=== PATIENT | female | born 1955 | race Caucasian/White ===

== ENCOUNTER 2021-03-12 08:45 | Outpatient (REF) | payer OTHER, SELFPAY ==
[2021-03-12 09:42] LABS: MANUAL DIFF FLAG NO
[2021-03-12 09:47] LABS: Basophils Absolute Auto 0.1 X10*3/uL (0.0-0.2); Basophils Percent Auto 1.9 % (0-2); Eosinophils Absolute Auto 0.1 X10*3/uL (0.0-0.4); Eosinophils Percent Auto 1.2 % (0-4); Hematocrit 38.2 % (37-47); Hemoglobin 12.5 g/dl (12.0-16.0); Imm Gran Abs Auto 0.01 X10*3/uL (0.00-0.03); Imm Gran Pct Auto 0.2 % (0.0-0.4); Lymphocytes Absolute Auto 1.6 X10*3/uL (1.2-4.9); Lymphocytes Percent Auto 38.1 % (20-40); Mean Corpuscular HGB Conc 32.7 g/dl (31.0-35.0); Mean Corpuscular Hemoglobin 27.4 pg (27.0-33.0); Mean Corpuscular Volume 83.8 fL (80-98); Mean Platelet Volume 9.9 fL (9.4-12.3); Monocytes Absolute Auto 0.5 X10*3/uL (0.1-1.2); Monocytes Percent Auto 12.4 % (2-11); Neutrophils Absolute Auto 1.9 X10*3/uL (2.0-8.3); Neutrophils Percent Auto 46.2 % (45-73); Platelet Count 267 X10*3/uL (160-400); Red Blood Count 4.56 X10*6/uL (4.20-5.50); Red Cell Distribution Width 13.1 % (11.0-16.0); White Blood Count 4.2 X10*3/uL (4.8-10.8)
[2021-03-12 10:35] LABS: Alanine Aminotransferase 16 U/L (0-31); Albumin Level 4.2 g/dL (3.5-5.0); Alkaline Phosphatase 52 U/L (39-117); Anion Gap 14 (12-20); Aspartate Amino Transferase 23 U/L (5-31); Bilirubin Total 0.5 mg/dL (0.0-1.0); Blood Urea Nitrogen 10 mg/dL (9-16); Calcium 9.6 mg/dL (8.4-10.2); Carbon Dioxide 28 mmol/L (22-29); Chloride 101 mmol/L (96-108); Estimated Glomerular Filt Rate > 60; Glucose Fasting 87 mg/dL (60-99); Potassium 4.6 mmol/L (3.3-5.1); Sodium 138 mmol/L (135-145); Total Protein 7.7 g/dL (6.5-8.0)
[2021-03-12 10:57] LABS: TSH reflex Free T4 1.08 uIU/mL (0.32-4.0)
[2021-03-12 11:15] LABS: Erythrocyte Sedimentation Rate 28 MM/HR (0-20)
[2021-03-14 14:07] LABS: CRP High Sensitivity 3.3 mg/L
== END 2021-03-12 08:46 | disposition home or self-care (01) ==
LOC: HO.LAB 08:45
PROVIDERS: Visit Provider Family Medicine
DX: Z00.00 Encounter for general adult medical examination without abnormal findings (principal); R00.0 Tachycardia, unspecified
CPT/HCPCS: 36415; 80053; 84443; 85025; 85652; 86141

== ENCOUNTER 2021-08-05 07:20 | Outpatient (REF) | payer OTHER, SELFPAY ==
--- NOTE | ~2021-08-05 | CT_ITS ---
EXAMINATION: CT HEAD WITHOUT CONTRAST CLINICAL INFORMATION: Headache COMPARISON: MRI brain from 01/15/2018 TECHNIQUE: Contiguous axial imaging was performed from the skull base to vertex without intravenous administration of contrast. This CT examination was performed using dose optimization techniques as appropriate, variously including the following: *Automated exposure control *Adjustment of mA and/or kV according to patient size (this includes techniques or standardized protocols for targeted exams where dose is matched to indication/reason for exam; i.e. extremities or head) *Use of iterative reconstruction technique DLP: 685.1 mGy-cm FINDINGS: There is no evidence of acute intracranial hemorrhage or territorial infarction. No abnormal mass effect or midline shift is seen. Remy to white matter differentiation is well preserved. No extra-axial fluid collections are identified. The ventricles are normal in size. There is no abnormal attenuation within the brain parenchyma. The osseous structures and soft tissues are normal. The mastoid air cells and visualized portions of the paranasal sinuses are well aerated. CT/CT head/brain wo con IMPRESSION: No acute intracranial pathology.
== END 2021-08-05 07:21 | disposition home or self-care (01) ==
LOC: HO.CT 07:20
PROVIDERS: PCP Family Medicine; Visit Provider Family Medicine
DX: R51.9 Headache, unspecified (principal)
CPT/HCPCS: 70450

== ENCOUNTER 2021-09-14 10:51 | Outpatient (REF) | payer OTHER, SELFPAY ==
--- NOTE | ~2021-09-14 | XR_ITS ---
EXAMINATION: XR CHEST CLINICAL INFORMATION: Tachycardia COMPARISON: Chest x-ray on 01/22/2020 TECHNIQUE: 2 views of the chest were obtained. FINDINGS: No significant abnormality is noted involving the heart, lungs, mediastinum, bony thorax or soft tissues. XR/XR chest 2V IMPRESSION: Unremarkable examination.
[2021-09-14 13:57] LABS: MANUAL DIFF FLAG NO
[2021-09-14 14:20] LABS: Basophils Absolute Auto 0.1 X10*3/uL (0.0-0.2); Basophils Percent Auto 1.2 % (0-2); Eosinophils Percent Auto 0.4 % (0-4); Hemoglobin 12.3 g/dl (12.0-16.0); Imm Gran Abs Auto 0.02 X10*3/uL (0.00-0.03); Imm Gran Pct Auto 0.3 % (0.0-0.4); Lymphocytes Absolute Auto 2.3 X10*3/uL (1.2-4.9); Lymphocytes Percent Auto 33.7 % (20-40); Mean Corpuscular HGB Conc 32.4 g/dl (31.0-35.0); Mean Corpuscular Volume 86.6 fL (80-98); Mean Platelet Volume 10.1 fL (9.4-12.3); Monocytes Absolute Auto 0.6 X10*3/uL (0.1-1.2); Monocytes Percent Auto 9.4 % (2-11); Neutrophils Absolute Auto 3.7 X10*3/uL (2.0-8.3); Platelet Count 408 X10*3/uL (160-400); Red Blood Count 4.39 X10*6/uL (4.20-5.50); White Blood Count 6.8 X10*3/uL (4.8-10.8)
[2021-09-14 14:34] LABS: Troponin-I High Sensitivity < 3.5 ng/L (<3.5-17.0)
[2021-09-14 14:40] LABS: Alanine Aminotransferase 11 U/L (0-31); Albumin Level 4.5 g/dL (3.5-5.0); Alkaline Phosphatase 61 U/L (39-117); Anion Gap 15 (12-20); Aspartate Amino Transferase 19 U/L (5-31); Bilirubin Total 0.5 mg/dL (0.0-1.0); Blood Urea Nitrogen 8 mg/dL (9-16); Calcium 9.5 mg/dL (8.4-10.2); Carbon Dioxide 25 mmol/L (22-29); Chloride 100 mmol/L (96-108); Estimated Glomerular Filt Rate > 60; Glucose Fasting 97 mg/dL (60-99); Potassium 4.3 mmol/L (3.3-5.1); Sodium 136 mmol/L (135-145); Total Protein 8.5 g/dL (6.5-8.0)
[2021-09-14 14:46] LABS: TSH reflex Free T4 1.15 uIU/mL (0.32-4.0)
== END 2021-09-14 10:52 | disposition home or self-care (01) ==
LOC: HO.WFDLDS 10:51
PROVIDERS: PCP Family Medicine; Visit Provider Family Medicine
DX: Z00.00 Encounter for general adult medical examination without abnormal findings (principal); R00.0 Tachycardia, unspecified; R06.02 Shortness of breath
CPT/HCPCS: 36415; 71046; 80053; 84443; 84484; 85025

== ENCOUNTER 2021-10-20 11:49 | Emergency (ER) | payer OTHER, SELFPAY ==
[2021-10-20 12:07] VITALS: BP 144/90; PULSE 83; O2SAT 100; BMI 21.2
[2021-10-20 12:14] VITALS: BP 145/76; PULSE 78; RESP 18; TEMP 36.7; O2SAT 99
--- NOTE | 2021-10-20 12:28 | ECG_ITS ---
Test Reason : ANXIETY Blood Pressure : / mmHG Vent. Rate : 076 BPM Atrial Rate : 076 BPM P-R Int : 138 ms QRS Dur : 084 ms QT Int : 382 ms P-R-T Axes : 062 095 069 degrees QTc Int : 429 ms Normal sinus rhythm Rightward axis Borderline ECG When compared with ECG of 17-JAN-2018 05:21, No significant change was found Referred By: Marilyn Cash Electronically Signed By:KATHLEEN GARDINER
--- NOTE | 2021-10-20 12:32 | ED.ANXIETY ---
HPI - Anxiety General Chief Complaint: Anxiety Stated Complaint: ANXIETY ATTACK W/SOB,L ARM NUMNBESS,S/P COVID TEST Time Seen by Provider: 10/20/21 12:28 History of Present Illness HPI narrative: Patient is a 65-year-old female with a history of anxiety. Presented today after waiting for COVID test for approximately 3 hours. Patient feel very tingling in both arms and legs. Has feeling of doom. This is exactly same as her previous panic attack. Patient denies any chest pain. No diaphoresis. Positive history of rheumatoid arthritis. Patient already received her COVID vaccine x2. Patient is on Humira. Denies any focal weakness patient's symptom has since resolved. She is in no distress. Related Data Home Medications Medication Instructions Recorded Confirmed aspirin 81 mg tablet,delayed 81 mg PO DAILY 08/15/21 release (Adult Aspirin Regimen) Previous Rx's Medication Instructions Recorded sertraline 50 mg tablet 50 mg PO DAILY 90 Days #90 tab 09/21/20 simvastatin 40 mg tablet 40 mg PO DAILY 90 Days #90 tab 05/19/21 cetirizine 10 mg tablet (All Day 10 mg PO DAILY 90 Days #90 tab 07/05/21 Allergy (cetirizine)) albuterol sulfate 90 mcg/actuation 2 puff INHALATION Q6H PRN 30 Days 08/15/21 aerosol inhaler (ProAir HFA) #8.5 g fluticasone propionate 110 1 puff INHALATION Q12H 30 Days #12 08/15/21 mcg/actuation HFA aerosol inhaler g (Flovent HFA) topiramate 50 mg tablet 50 mg PO BID 30 Days #60 tab 08/24/21 clonazepam 0.5 mg tablet 0.25 mg PO BID PRN 30 Days #12 tab 10/04/21 fluticasone propionate 50 2 spray INTRANASAL DAILY #16 g 10/06/21 mcg/actuation nasal spray,suspension Allergies Allergy/AdvReac Type Severity Reaction Status Date / Time penicillin V Allergy Unknown hives Verified 10/04/21 15:57 Review of Systems Review of Systems: No fever no chills no cough no congestion or upper respiratory symptoms no diaphoresis All system reviewed otherwise negative PMFSH Past Medical History Attestation statement: The following information was validated with the patient. Medical History Close exposure to 2019 novel coronavirus Flushing Itch Tachycardia Surgical History History of appendectomy History of shoulder surgery Social History Social History Housing: House Alcohol intake: current Alcohol intake frequency: holidays/special occasions only Patient Tobacco Use Status: Former Tobacco user Advance Directives: No Advance Directives Information Provided: No Patient : No service: No Current occupational status: employed Physical Exam Vital Signs: Vital Signs: Last Vital Signs Temp 98.0 F 10/20/21 12:14 Pulse 78 10/20/21 12:14 Resp 18 10/20/21 12:14 BP 145/76 H 10/20/21 12:14 Pulse Ox 99 10/20/21 12:14 BMI result Body Mass Index 21.2 Appearance: Alert. Oriented X3. No acute distress. Eyes: Pupils equal, round and reactive to light. ENT: Pharynx normal. Neck: Normal inspection. Neck supple. No lymph nodes noted. No crepitus CVS: Normal heart rate and rhythm. Pulses normal. Normal S1 and S2 Respiratory: No respiratory distress. Breath sounds normal. No Wheezing. No rales Abdomen: Soft and nontender. No rigidity. No distention. good BS x4 Skin: Skin warm and dry. Normal skin color. Normal skin turgor. Extremities: No lower extremity edema. Neurovascular intact to all extremities. No Lacerations. No Rash Neuro: Oriented X 3. No motor deficit. No sensory deficit. Moving all extermities. No slurred speech MDM - Anxiety MDM Narrative Medical decision making narrative: Patient's COVID test was negative. Given Ativan symptom improved. No distress. EKG showed a sinus pattern heart rate was 75 ID QRS QT within normal limits there is no acute ST segment elevation. Will discharge patient home. Medical Records Attestation: I reviewed the patient's medical records. Lab Data Attestation: I reviewed the patient's lab results. Labs: Lab Results 10/20/21 Range/Units 12:37 COVID-19 (JORGE) Negative (Negative) COVID-19 Clin Com See Note Discharge Plan Discharge Clinical Impression: Anxiety Patient Disposition: Home, Self-Care Instructions: Anxiety (ED) Prescriptions: No Action sertraline 50 mg tablet 50 mg PO DAILY 90 Days Qty: 90 RF: 4 simvastatin 40 mg tablet 40 mg PO DAILY 90 Days Qty: 90 RF: 2 topiramate 50 mg tablet 50 mg PO BID 30 Days Qty: 60 RF: 1 fluticasone propionate 50 mcg/actuation spray,suspension 2 spray intranasal DAILY Qty: 16 RF: 3 clonazepam 0.5 mg tablet 0.25 mg PO BID PRN (Reason: anxiety) 30 Days Qty: 12 RF: 0 cetirizine [All Day Allergy (cetirizine)] 10 mg tablet 10 mg PO DAILY 90 Days Qty: 90 RF: 3 aspirin [Adult Aspirin Regimen] 81 mg tablet,delayed release (DR/EC) 81 mg PO DAILY RF: 0 albuterol sulfate [ProAir HFA] 90 mcg/actuation HFA aerosol inhaler 2 puff inhalation Q6H PRN (Reason: shortness of breath or wheezing) 30 Days Qty: 8.5 RF: 3 Flovent HFA 110 mcg/actuation HFA aerosol inhaler 1 puff inhalation Q12H 30 Days Qty: 12 RF: 2 Referrals: Aguilar De Luna MD [Primary Care Provider] - 2 days
[2021-10-20] MEDS: LORazepam 0.5 MG TABLET PO (12:50)
[2021-10-20 12:55] LABS: COVID-19 Test Negative (Negative)
== END 2021-10-20 13:25 | disposition home or self-care (01) ==
PROVIDERS: Emergency Provider Emergency Medicine Emergency Medical Services; PCP Family Medicine
DX: F41.9 Anxiety disorder, unspecified (principal); Z20.822 Contact with and (suspected) exposure to COVID-19; R06.02 Shortness of breath
CPT/HCPCS: 36415; 87635; 93005; 99283; 99284

== ENCOUNTER 2022-07-25 11:44 | Outpatient (REF) | payer OTHER, SELFPAY ==
[2022-07-25 14:14] LABS: Appearance Urine Clear; Color Urine Yellow; Glucose Urine UA Negative (Negative); Leukocyte Esterase Urine Negative (Negative); Nitrite Urine Negative (Negative); Urine Blood Trace (Negative); Urine Ketones Negative (Negative); Urine Protein Negative (Neg-Trace)
[2022-07-25 14:19] LABS: Bacteria Urine None Seen (None Seen); Hyaline Casts Urine 0-2 /LPF (0-2); RBC Urine 0-2 /HPF (0-2); Squamous Epithelial Cell Urine 0-2 /HPF (0-2); WBC Urine 0-5 /HPF (0-5)
[2022-07-25 14:49] LABS: Alanine Aminotransferase 19 U/L (0-31); Albumin Level 4.3 g/dL (3.5-5.0); Alkaline Phosphatase 58 U/L (39-117); Anion Gap 15 (12-20); Aspartate Amino Transferase 27 U/L (5-31); Bilirubin Total 0.4 mg/dL (0.0-1.0); Blood Urea Nitrogen 14 mg/dL (9-16); Calcium 9.2 mg/dL (8.4-10.2); Carbon Dioxide 26 mmol/L (22-29); Chloride 103 mmol/L (96-108); Cholesterol 198 mg/dL; Estimated Glomerular Filt Rate 55; Glucose Fasting 90 mg/dL (60-99); HDL Cholesterol 48 mg/dL; LDL Cholesterol Calculated 116 mg/dl; Sodium 139 mmol/L (135-145); Triglycerides 170 mg/dL
[2022-07-25 14:54] LABS: TSH reflex Free T4 2.34 uIU/mL (0.32-4.0)
[2022-07-25 15:17] LABS: Creatinine Urine 50.82 mg/dL; Microalbumin Urine < 5.0 mg/L
== END 2022-07-25 11:45 | disposition home or self-care (01) ==
LOC: HO.WFDLDS 11:44
PROVIDERS: Visit Provider Family Medicine
DX: Z00.00 Encounter for general adult medical examination without abnormal findings (principal); I10 Essential (primary) hypertension
CPT/HCPCS: 36415; 80053; 80061; 81001; 81003; 82043; 84443

== ENCOUNTER 2022-10-09 11:24 | Outpatient (REF) | payer OTHER, SELFPAY ==
[2022-10-09 13:12] LABS: Vitamin B12 404 pg/mL (200-900)
== END 2022-10-09 11:25 | disposition home or self-care (01) ==
LOC: HO.LAB 11:24
PROVIDERS: PCP Family Medicine; Visit Provider Psychiatry & Neurology Neurology
DX: G31.84 Mild cognitive impairment of uncertain or unknown etiology (principal)
CPT/HCPCS: 36415; 82607

== ENCOUNTER 2023-06-06 14:46 | Outpatient (AMB) | payer OTHER, SELFPAY ==
[2023-06-06 15:00] VITALS: BP 114/76; PULSE 93; RESP 12; TEMP 36.4; O2SAT 98; BMI 23.0
--- NOTE | 2023-06-06 15:00 | MHC.PC.OV ---
Vital Signs 06/06/23 15:00 Height 5 ft 8 in Weight 151 lb 4 oz BMI 23.0 BP 114/76 Blood Pressure Location Rt brachial Position Sitting Respiration 12 Pulse 93 Pulse Source Pulse Oximeter Temp 97.6 F Temp Source Temporal Artery Scan Pulse Oximetry (%) 98 Oxygen Delivery Method Room Air Intake Visit Reasons: [place]/ -13/06-03/Reports of a fall Intake Note: Patient is concerned about next steps for her injury. Patient states that when at the hospital they stated she needed a CAT scan. Patient states that the hospital confirmed she broke her right leg. Patient states that one of her medications is causing her to see shadows at night and seeing things during the day. Template Layout Worker Required: No Accompanied by: Self / Same As Patient Allergies penicillin V Allergy (Unknown, Verified 06/06/23 15:36) hives Medication List - Last Reconciled 06/06/23 by Alicia Singh, TRINO albuterol sulfate 90 mcg/actuation 2 puffs PO Q6H PRN aspirin (Adult Aspirin Regimen) 81 mg PO DAILY bupropion HCl 37.5 mg (1/2 x 75 mg) PO DAILY cetirizine (All Day Allergy (cetirizine)) 10 mg PO DAILY 90 days clotrimazole-betamethasone 1-0.05 % 1 appl topical BID 2 weeks fluticasone propionate 110 mcg/actuation (Flovent HFA) 1 puff inhalation Q12H 30 days sertraline 100 mg PO DAILY 90 days simvastatin 40 mg PO DAILY 90 days Tobacco use date assessed: 09/06/22 Fall risk assessment: 1 Fall in past year Last assessed Fall Risk: 06/06/23 Dental Screening Dental Screen Date: 06/06/23 Did you have a dental visit in the last 12 months?: Yes Did you have a dental problem in the last 6 months where you did not have access to dental care?: No Was dental information given to patient?: Patient has dentist HPI HPI Comments History of Present Illness Details There 67-year-old female presents for recent hospitalization follow-up visit She was admitted at [facility] between 06/01/2023 and 06/03/2023 for right ankle pain s/p fall in her home. X-ray revealed nondisplaced oblique fracture of the right proximal fibula; normal right ankle. She was discharged home with instructions to wear knee immobilizer and weight-bearing as tolerable. CT of the right knee was recommended. She also has current home care orders. She notes that fell from 2 sets of stairs and fell in a hallway in her home. No head, neck, or back injury. No LOC. PT was set by [facility], awaiting CT results. She reports minimal pain to her right lower leg and foot only while walking, no pain at rest. She currently lives with her sister who helps with the patient's care. She states that she does not need VNA services. She reports experiencing moving of the ceilings and seeing black spots, at night, for the past 2 months. She attributes her symptoms to her side effects of her bedtime medications. [facility] Medical History Broken leg Close exposure to 2019 novel coronavirus Flushing Itch Tachycardia Surgical History History of appendectomy History of shoulder surgery Social History Housing: House Alcohol intake: current Alcohol intake frequency: holidays/special occasions only Patient Tobacco Use Status: Former Tobacco user e-Cigarette/Vaping Use: Never Used Second Hand Smoke Exposure: No service: No Current occupational status: employed and retired Current occupational exposures/hazards: No Cognitive needs: No Hearing needs: No Vision needs: Yes (Glasses) Questionnaire Thrive Questionnaire Date Thrive assessed: 06/06/23 I am a: Patient What is your living situation today?: I have a steady place to live Within the past 12 months, did the food you bought not last and you didn't have the money to get more?: Never true Within the past 12 months, did you worry whether your food would run out before you got money to buy more?: Never true Do you have trouble paying for medicines?: No Do you have trouble getting transportation to medical appointments?: No Do you have trouble paying your heating and electricity bill?: No Do you have trouble taking care of your child, family member or friend?: No Do you have trouble with day-to-day activities such as bathing, preparing meals, shopping, managing finances, etc.?: No Are you currently unemployed and looking for a job?: No Are you interested in more education?: No Please select the resources that you would like help with: None Currently or been in a relationship where the following occur: no concerns reported ARNOLDO-7 AMB Questionnaire ARNOLDO-7 Date ARNOLDO - 7 assessed: 09/06/22 Source: Developed by Drs. Kamran Salas, Brooklyn Arias, Darrion Ayon and colleagues, with an educational mariusz from [employer]. Review of Systems Const Details: Const Denies chills, Denies fatigue, Denies fever(s), Denies headache(s) and Denies weakness ENT Denies dizziness and Denies headache(s) Card Denies chest pain, Denies lightheadedness, Denies dyspnea and Denies other (Palpitations) Resp Denies cough, Denies dyspnea, Denies wheezing and Denies other ( shortness of breath) GI Denies abdominal pain, Denies melena, Denies hematochezia, Denies change in bowel habits, Denies dyspepsia and Denies nausea Denies hematuria and Denies dysuria Musc Reports right foot and lower leg pain, Denies abnormal gait, Denies myalgias, Denies arthralgias, Denies numbness and Denies tingling Skin/Breast Denies rash, Denies unusual bruising and Denies wounds Neuro Reports abnormal gait, Denies dizziness, Denies headache(s), Denies memory loss, Denies numbness, Denies Sensory deficit (Neuro), Denies tingling and Denies weakness Psych Denies anxiety and Denies depression Endo Denies fatigue Aller/Immun Denies wheezing Physical exam (Primary Care) Vital Signs: Last Vital Signs Temp 97.6 F 06/06/23 15:00 Pulse 93 06/06/23 15:00 Resp 12 06/06/23 15:00 BP 114/76 06/06/23 15:00 Pulse Ox 98 06/06/23 15:00 Oxygen Delivery Method Room Air 06/06/23 15:00 BMI result Body Mass Index 23.0 Tobacco/Smoking Status: Tobacco use Status Tobacco use date assessed 09/06/22 06/06/23 15:21 Patient Tobacco Use Status Former Tobacco user 06/06/23 15:21 e-Cigarette/Vaping Use Never Used 06/06/23 15:21 Thrive Assessment: Date of Thrive Assessment Date Thrive assessed 06/06/23 06/06/23 15:23 Currently or been in a relationship where the following occur: no concerns reported Const Other: General: no acute distress and well developed Nutritional Appearance: well nourished Orientation/consciousness: patient oriented x3 [facility] Head: Yes normocephalic and Yes atraumatic Eyes General: appearance normal, both eyes and all related structures Pupils: Equal, round and reactive pupils present EOM: EOMs intact bilaterally Resp Effort & Inspection: normal respiratory effort Auscultation: clear to auscultation bilaterally Cardio Rate: regular rate Rhythm: regular rhythm Heart sounds: S1 normal heart sound present, S2 normal heart sound present, no gallops, no murmurs and no rubs GI Palpation (GI): No Abdominal aortic bruit present, Soft to palpation, nontender, No hepatosplenomegaly present and No Rebound tenderness present Auscultation: normal bowel sounds General: Yes no CVA tenderness Back/Spine/Pelvis Back: no CVA tenderness Cervical Spine: cervical ROM normal and No Cervical spine tenderness Thoracic/Lumbar Spine: thoraco-lumbar ROM normal, No pain with thoraco-lumbar ROM, No thoracic spinal tenderness and No lumbar spinal tenderness Extrem General: Yes normal to inspection, No edema and No calf tenderness Positive DP/PT pulses Skin General: warm and dry. Normal skin color. Normal skin turgor Lesions: no lesions Rashes: no rashes Trauma: no lacerations or abrasions Wounds: no wounds Nails: normal Neuro General: patient oriented x3, unsteady gait l and no focal neuro deficit Cranial nerves: Yes Equal, round and reactive pupils present Cognition (Neuro): normal cognition Gait exam (Neuro): Normal gait present Sensory Exam: No Sensory deficit (Neuro) Psych Affect: normal affect Assessment and Plan Assessment & Plan (1) Fracture of right proximal fibula: Code(s): S82.831A - Other fracture of upper and lower end of right fibula, initial encounter for closed fracture Plan: Normal exam of the right lower extremity Slightly unsteady gait favoring her right lower extremity Continue to wear brace as instructed Weightbearing as tolerated May take Tylenol or Motrin for pain or discomfort CT scan ordered. Patient will be contacted to schedule an appointment. Will review results and notify patient to contact PT for resumption of care Encouraged to follow-up with PCP sooner than scheduled follow-up appointment for complaints of possibly adverse reactions of nighttime medications Return sooner with new or worsening symptoms Verbalized understanding and agreed with treatment plan. Orders: Orders CT knee RT wo IV con Today S82.831A - Other fracture of upper and lower end of right fibula, initial encounter for closed fracture Coding Level of Care Code Est Pt Level 3 (99177) Diagnoses Fracture of right proximal fibula S82.831A Time Spent (min) 25
== END 2023-06-06 16:05 | disposition home or self-care (01) ==
PROVIDERS: PCP Family Medicine; Visit Provider Nurse Practitioner Family
DX: S82.831A Other fracture of upper and lower end of right fibula, initial encounter for closed fracture (principal)
CPT/HCPCS: 99213

== ENCOUNTER 2023-07-15 13:42 | Emergency (ER) | payer OTHER, SELFPAY ==
--- NOTE | ~2023-07-15 | CT_ITS ---
CT head/brain wo IV con CLINICAL INFORMATION: Reason for Exam numbness all over COMPARISON: No prior CT scan available for comparison. TECHNIQUE: Department standard protocol. This CT examination was performed using dose optimization techniques as appropriate, variously including the following: *Automated exposure control *Adjustment of mA and/or kV according to patient size (this includes techniques or standardized protocols for targeted exams where dose is matched to indication/reason for exam; i.e. extremities or head) *Use of iterative reconstruction technique DLP: 594 mGy-cm FINDINGS: CEREBRAL HEMISPHERES: There is no evidence of intra-axial or extra-axial mass, hemorrhage or acute infarct. BRAIN PARENCHYMA: Normal helms-white matter differentiation. SUBDURAL SPACE: No bleed. BASAL GANGLIA AND PINEAL GLAND: Unremarkable VENTRICLES: Symmetric and normal in size. CEREBELLUM AND BRAINSTEM: No space-occupying mass, hemorrhage or acute infarct. CEREBELLOPONTINE ANGLES: No lesion found. ORBITS: No intraorbital mass. VESSELS: Unremarkable SKULL BASE: Unremarkable INCLUDED SINUSES AT SKULL BASE: Clear SKULL AND SKIN: No fracture or bone lesion found. CT/CT head/brain wo IV con IMPRESSION: No CT evidence of intracranial space-occupying mass, bleed or infarct.
[2023-07-15 13:51] VITALS: BP 158/72; PULSE 74; O2SAT 99; BMI 22.2
[2023-07-15 13:55] VITALS: BP 147/69; PULSE 74; RESP 16; TEMP 36.4; O2SAT 99
--- NOTE | 2023-07-15 13:59 | PC.NURSE ---
pt a&ox3, vss, nsr on the threat monitoring analyst. pt verbalizing no pain but generalized numbness all over the body. pt states that numbness started in the LE bilaterally and then started in the UE bilaterally. pt denies n/v. pt has no delay or difficulty while speaking. pt extremely anxious and tearful jake. pt states that she feels like her legs are blowing up in size. lung sounds clear throughout. call shore placed within reach.
--- NOTE | 2023-07-15 14:15 | PC.NURSE ---
patient a&ox3, smile symmetrical, pt has equal neurodiagnostic technician strength, no drift noted to upper extremities, lower extremities pt able to lift/hold, BLE equal strength noted as well. bilateral eyes perrla, neuro at this time intact, additionally pt passed swallow eval.
--- NOTE | 2023-07-15 14:17 | ED_ITS ---
HPI - General Adult General Chief complaint: General Medical Stated complaint: NUMBNESS ALL OVER Time Seen by Provider: 07/15/23 14:12 Source: patient Mode of arrival: ambulatory Limitations: no limitations History of Present Illness HPI narrative: Patient is a 67 year old female hx of memory changes, anxiety, depression, L sided weakness, RA, presenting with lower extremity weakness. Patient states she was last well about an hour and a half ago. She was outside when she felt sudden onset weakness (entire body), numbness and tingling of her lower extremities that then included her upper extremities. She then went inside and tried to rest but the weakness did not improve so her son called an ambulance. She states that now only her lower extremities feel numb however not weak. She denies fever, chills, headache, vision changes, nausea, vomiting, or recent injury. No recent surgical procedures last one was a year ago R foot and no recent vaccinations. Related Data Home Medications Medication Instructions Recorded Confirmed aspirin 81 mg tablet,delayed 81 mg PO DAILY 08/15/21 06/06/23 release (Adult Aspirin Regimen) Previous Rx's Medication Instructions Recorded fluticasone propionate 110 1 puff inhalation Q12H 30 days #12 08/15/21 mcg/actuation HFA aerosol inhaler grams (Flovent HFA) albuterol sulfate 90 mcg/actuation 2 puff PO Q6H PRN for wheezing 11/24/21 aerosol inhaler #8.5 grams cetirizine 10 mg tablet (All Day 10 mg PO DAILY 90 days #90 tabs 09/25/22 Allergy (cetirizine)) simvastatin 40 mg tablet 40 mg PO DAILY 90 days #90 tabs 12/24/22 clotrimazole-betamethasone 1 1 appl topical BID 2 weeks #15 02/14/23 %-0.05 % topical cream grams sertraline 100 mg tablet 100 mg PO DAILY 90 days #90 tabs 03/06/23 bupropion HCl 75 mg tablet 37.5 mg PO DAILY #15 tabs 05/16/23 Allergies Allergy/AdvReac Type Severity Reaction Status Date / Time penicillin V Allergy Unknown hives Verified 07/15/23 13:51 Review of Systems Review of Systems: Constitutional : No Weight loss, No Fever, No Chills, No Fatigue, No Malaise ENT/Mouth : No sore throat, No Rhinorrhea Eyes: No Eye Pain, No Swelling, No Redness Cardiovascular : No Chest Pain, No SOB, No Dyspnea on Exertion, No Orthopnea, No Edema, No Palpitations Respiratory : No Cough, No Sputum, No Wheezing Gastrointestinal : No Nausea, No Vomiting, No Diarrhea, No Constipation, No abdominal Pain, No Hematochezia, No Melena Genitourinary : No Dysuria, No Urinary Frequency, No Hematuria, Musculoskeletal : No joint pain, No Myalgias, No Joint Swelling Skin : No Skin Lesions, No rash Neuro : + Weakness, Numbness, No Dizziness, No Headache Psych : No Anxiety/Panic, No Depression All other systems reviewed and are negative Yes all other systems are reviewed and are negative FORMERLY [facility], [facility] Past Medical History Attestation statement: The following information was validated with the patient. Source: old records reviewed and nursing notes reviewed Medical History Broken leg Close exposure to 2019 novel coronavirus Flushing Hypercholesteremia Itch Rheumatoid arthritis Tachycardia Surgical History History of appendectomy History of shoulder surgery Social History Social History Housing: House Alcohol intake: never Patient Tobacco Use Status: Former Tobacco user Smoked in Last 30 Days: No e-Cigarette/Vaping Use: Never Used Second Hand Smoke Exposure: No Use of substances other than those prescribed or required for medical reasons: No Advance Directives: No Advance Directives Information Provided: Yes service: No Current occupational status: employed and retired Current occupational exposures/hazards: No Cognitive needs: No Hearing needs: No Vision needs: Yes (Glasses) Physical Exam ED Vital Signs: Vital Signs - 24 hr 07/15/23 13:55 07/15/23 15:27 Temperature 97.6 F 97.6 F Pulse Rate 74 71 Respiratory Rate 16 18 Blood Pressure 147/69 H 148/66 H Pulse Oximetry 99 99 Oxygen Delivery Method Room Air BMI result Body Mass Index 22.2 Vital signs stable Appearance: Alert.? Oriented X3.? No acute distress.? Head: Normocephalic, atraumatic, no step-offs or deformities Eyes: Pupils equal, round and reactive to light.? CVS: Normal heart rate and rhythm.? Pulses normal.? Respiratory: No respiratory distress.? Breath sounds normal.? Abdomen: Soft and nontender.? Skin: Skin warm and dry.? Normal skin color.? Normal skin turgor.? Extremities: No lower extremity edema.? No calf ttp. 5/5 strength to bilateral upper and lower extremities 2+ patellar and achilles reflexes to b/l lower extremities. Back: No midline tenderness, no C-spine tenderness, full range of motion, no CVA tenderness bilaterally Neuro: Oriented X 3.? No motor deficit.? CN 2-12 intact. 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 Patient reporting numbness and tingling to palpation of the lower extremities. NIH Stroke Scale 1 Course Reevaluation(s) Reevaluation #1: Upon chart review patient had a similar presentation in 10/2021. At that time she had tingling in both upper and lower extremities and feelings of doom. Provider's note from that visit states that these symptoms are consistent with patient's prior panic attacks. Time: 03:24 Reevaluation #2: Sign out to Megan pending CT head and reevaluation. Time: 16:03 Medical Decision Making Medical Decision Making MDM Narrative: 2:35 67 year old female presenting with numbness and tingling of the lower extremities started as full body weakness. Exam significant for numbness/tingling to palpation of the lower extremities. No focal neuro deficits. NIH Stroke Scale 1 This is likely TIA vs radiculopathy vs anxiety attack vs guillian barre ( less likely) . Unlikely intracranial hemorrhage, stroke or posterior stroke due to lack of focal neuro deficits but will CT to rule out. Will rule out metabolic or electrolyte derangements. Plan: labs, urine, imaging Differential Diagnosis Differential Diagnoses: The differential diagnosis associated with the presentation includes This is likely TIA vs radiculopathy vs anxiety attack vs guillian barre (less likely). Unlikely intracranial hemorrhage, stroke or posterior stroke due to lack of focal neuro deficits but will CT to rule out. Will rule out metabolic or electrolyte derangements Admission/Observation Consideration of admission/observation: Escalation of care including admission/observation considered Not indicated. Lab Data MDM Lab Attestation statement: I reviewed the patient's lab results. 07/15/23 15:24 07/15/23 15:24 Labs: Lab Results 07/15/23 07/15/23 07/15/23 Range/Units 15:24 15:24 15:24 WBC 9.5 (4.8-10.8) X10*3/uL RBC 4.38 (4.20-5.50) X10*6/uL Hgb 12.4 (12.0-16.0) g/dl Hct 37.0 (37.0-47.0) % MCV 84.5 (80.0-98.0) fL MCH 28.3 (27.0-33.0) pg MCHC 33.5 (31.0-35.0) g/dl RDW 12.5 (11.0-16.0) % Plt Count 287 (160-400) X10*3/uL MPV 9.6 (9.4-12.3) fL Immature Gran % (Auto) 0.3 (0.0-0.4) % Neut % (Auto) 74.4 H (45-73) % Lymph % (Auto) 17.9 L (20-40) % [place] % (Auto) 6.4 (2-11) % Eos % (Auto) 0.4 (0-4) % Baso % (Auto) 0.6 (0-2) % Lymph # (Auto) 1.7 (1.2-4.9) X10*3/uL [place] # (Auto) 0.6 (0.1-1.2) X10*3/uL Eos # (Auto) 0.0 (0.0-0.4) X10*3/uL Baso # (Auto) 0.1 (0.0-0.2) X10*3/uL Abs Immat Gran (auto) 0.03 (0.00-0.03) X10*3/uL Absolute Neuts (auto) 7.1 (2.0-8.3) x10*3/uL Absolute Nucleated RBC 0.000 (0.0-0.012) X10*3/uL Nucleated RBC % (auto) 0.0 (0.0-0.2) /100WBC Sodium 141 (135-145) mmol/L Potassium 3.7 D (3.3-5.1) mmol/L Chloride 108 (96-108) mmol/L Carbon Dioxide 21 L (22-29) mmol/L Anion Gap 16 (12-20) BUN 13 (9-16) mg/dL Creatinine 0.97 (0.5-1.4) mg/dL Estim Creat Clear Calc 60.4 Estimated GFR 58 Random Glucose 105 (60-115) mg/dL Calcium 9.9 D (8.4-10.2) mg/dL Magnesium 1.9 (1.6-2.6) mg/dL Total Bilirubin 0.4 (0.0-1.0) mg/dL AST 21 (5-31) U/L ALT 14 (0-31) U/L Alkaline Phosphatase 55 (39-117) U/L Troponin I High Sens < 2.7 (<3.5-17.0) ng/L C-Reactive Protein (< or = 0.50) mg/dL Total Protein 7.7 (6.5-8.0) g/dL Albumin 4.3 (3.5-5.0) g/dL Urine Color Urine Appearance Urine pH (5.0-9.0) Ur Specific [place] (1.005-1.025) Urine Protein (Neg-Trace) mg/dL Urine Glucose (UA) (Negative) mg/dL Urine Ketones (Negative) mg/dL Urine Blood (Negative) Urine Nitrite (Negative) Ur Leukocyte Esterase (Negative) 07/15/23 07/15/23 Range/Units 15:24 15:24 WBC (4.8-10.8) X10*3/uL RBC (4.20-5.50) X10*6/uL Hgb (12.0-16.0) g/dl Hct (37.0-47.0) % MCV (80.0-98.0) fL MCH (27.0-33.0) pg MCHC (31.0-35.0) g/dl RDW (11.0-16.0) % Plt Count (160-400) X10*3/uL MPV (9.4-12.3) fL Immature Gran % (Auto) (0.0-0.4) % Neut % (Auto) (45-73) % Lymph % (Auto) (20-40) % [place] % (Auto) (2-11) % Eos % (Auto) (0-4) % Baso % (Auto) (0-2) % Lymph # (Auto) (1.2-4.9) X10*3/uL [place] # (Auto) (0.1-1.2) X10*3/uL Eos # (Auto) (0.0-0.4) X10*3/uL Baso # (Auto) (0.0-0.2) X10*3/uL Abs Immat Gran (auto) (0.00-0.03) X10*3/uL Absolute Neuts (auto) (2.0-8.3) x10*3/uL Absolute Nucleated RBC (0.0-0.012) X10*3/uL Nucleated RBC % (auto) (0.0-0.2) /100WBC Sodium (135-145) mmol/L Potassium (3.3-5.1) mmol/L Chloride (96-108) mmol/L Carbon Dioxide (22-29) mmol/L Anion Gap (12-20) BUN (9-16) mg/dL Creatinine (0.5-1.4) mg/dL Estim Creat Clear Calc Estimated GFR Random Glucose (60-115) mg/dL Calcium (8.4-10.2) mg/dL Magnesium (1.6-2.6) mg/dL Total Bilirubin (0.0-1.0) mg/dL AST (5-31) U/L ALT (0-31) U/L Alkaline Phosphatase (39-117) U/L Troponin I High Sens (<3.5-17.0) ng/L C-Reactive Protein 0.18 (< or = 0.50) mg/dL Total Protein (6.5-8.0) g/dL Albumin (3.5-5.0) g/dL Urine Color Yellow Urine Appearance Clear Urine pH 8.0 (5.0-9.0) Ur Specific [place] <= 1.005 (1.005-1.025) Urine Protein Negative (Neg-Trace) mg/dL Urine Glucose (UA) Negative (Negative) mg/dL Urine Ketones Negative (Negative) mg/dL Urine Blood Negative (Negative) Urine Nitrite Negative (Negative) Ur Leukocyte Esterase Negative (Negative) Independent Interpretation I performed an independent interpretation of an: CT Scan Radiology Impression Discussion of test interpretation with radiology: I have reviewed the radiologist's reading. Tests considered The following testing was considered but not selected: I considered a lumbar puncture however normal reflexes, history and physical exam not suggesting guillan radhae Core Measures AMI core measures followed: Yes Measure exclusions: not indicated Critical Care Time Critical Care Time Critical Care Time: No Discharge Plan Discharge Clinical Impression: Numbness, Anxiety Patient Disposition: Still a Patient Instructions: Panic Disorder (ED), Paresthesia (ED), Anxiety (ED) Additional Instructions: Take your medications as prescribed. If you were prescribed antibiotics today, it is important that you take your medication to their entirety, do not skip any doses, do not finish them early. Follow-up with your primary care provider this week. Return to the emergency department with new or worsening symptoms. Such as fevers, chills, chest pain, shortness of breath, nausea, vomiting, dizziness, headache, vision changes, lethargy In case of emergency call 911 Prescriptions: No Action albuterol sulfate 90 mcg/actuation HFA aerosol inhaler 2 puff PO Q6H PRN (Reason: for wheezing) Qty: 8.5 5RF cetirizine [All Day Allergy (cetirizine)] 10 mg tablet 10 mg PO DAILY 90 Days Qty: 90 3RF simvastatin 40 mg tablet 40 mg PO DAILY 90 Days Qty: 90 2RF sertraline 100 mg tablet 100 mg PO DAILY 90 Days Qty: 90 4RF bupropion HCl 75 mg tablet 37.5 mg PO DAILY Qty: 15 3RF clotrimazole-betamethasone 1-0.05 % cream 1 appl topical BID 14 Days Qty: 15 0RF aspirin [Adult Aspirin Regimen] 81 mg tablet,delayed release (DR/EC) 81 mg PO DAILY Flovent HFA 110 mcg/actuation HFA aerosol inhaler 1 puff inhalation Q12H 30 Days Qty: 12 2RF Referrals: Aguilar De Luna MD [Primary Care Provider] - 2 days
--- NOTE | 2023-07-15 14:18 | ECG_ITS ---
Test Reason : WEAKNESS Blood Pressure : / mmHG Vent. Rate : 121 BPM Atrial Rate : 121 BPM P-R Int : 134 ms QRS Dur : 084 ms QT Int : 330 ms P-R-T Axes : 000 100 024 degrees QTc Int : 468 ms Sinus tachycardia Rightward axis Nonspecific T wave abnormality Abnormal ECG When compared with ECG of 20-OCT-2021 12:55, Vent. rate has increased BY 45 BPM Nonspecific T wave abnormality now evident in Inferior leads Nonspecific T wave abnormality, worse in Anterior leads Referred By: Slava Amaya Electronically Signed By:MICHELET DIOR
[2023-07-15 15:27] VITALS: BP 148/66; PULSE 71; RESP 18; TEMP 36.4; O2SAT 99
--- NOTE | 2023-07-15 15:28 | PC.NURSE ---
pt a&ox3, vss, pt verbalizing no pain jake but stats numbness/tingling in all extremities. labs/urine obtained and sent to lab. call shore placed within reach.
[2023-07-15 15:29] LABS: MANUAL DIFF FLAG NO
[2023-07-15 15:30] LABS: Basophils Absolute Auto 0.1 X10*3/uL (0.0-0.2); Basophils Percent Auto 0.6 % (0-2); Eosinophils Percent Auto 0.4 % (0-4); Hemoglobin 12.4 g/dl (12.0-16.0); Imm Gran Abs Auto 0.03 X10*3/uL (0.00-0.03); Imm Gran Pct Auto 0.3 % (0.0-0.4); Lymphocytes Absolute Auto 1.7 X10*3/uL (1.2-4.9); Lymphocytes Percent Auto 17.9 % (20-40); Mean Corpuscular HGB Conc 33.5 g/dl (31.0-35.0); Mean Corpuscular Hemoglobin 28.3 pg (27.0-33.0); Mean Corpuscular Volume 84.5 fL (80.0-98.0); Mean Platelet Volume 9.6 fL (9.4-12.3); Monocytes Absolute Auto 0.6 X10*3/uL (0.1-1.2); Monocytes Percent Auto 6.4 % (2-11); Neutrophils Absolute Auto 7.1 x10*3/uL (2.0-8.3); Neutrophils Percent Auto 74.4 % (45-73); Platelet Count 287 X10*3/uL (160-400); Red Blood Count 4.38 X10*6/uL (4.20-5.50); Red Cell Distribution Width 12.5 % (11.0-16.0); White Blood Count 9.5 X10*3/uL (4.8-10.8)
[2023-07-15 15:32] LABS: Appearance Urine Clear; Color Urine Yellow; Glucose Urine UA Negative (Negative); Leukocyte Esterase Urine Negative (Negative); Nitrite Urine Negative (Negative); Specific Gravity - Urine <= 1.005 (1.005-1.025); Urine Blood Negative (Negative); Urine Ketones Negative (Negative); Urine Protein Negative (Neg-Trace)
--- NOTE | 2023-07-15 15:41 | PC.NURSE ---
pt at CT.
[2023-07-15 15:47] LABS: C Reactive Protein 0.18 mg/dL (< or = 0.50)
[2023-07-15 15:50] LABS: Alanine Aminotransferase 14 U/L (0-31); Albumin Level 4.3 g/dL (3.5-5.0); Alkaline Phosphatase 55 U/L (39-117); Anion Gap 16 (12-20); Aspartate Amino Transferase 21 U/L (5-31); Bilirubin Total 0.4 mg/dL (0.0-1.0); Blood Urea Nitrogen 13 mg/dL (9-16); Calcium 9.9 mg/dL (8.4-10.2); Carbon Dioxide 21 mmol/L (22-29); Chloride 108 mmol/L (96-108); Creatinine Clr Calc Pharmacy 60.4; Estimated Glomerular Filt Rate 58; Glucose Random 105 mg/dL (60-115); Magnesium 1.9 mg/dL (1.6-2.6); Potassium 3.7 mmol/L (3.3-5.1); Sodium 141 mmol/L (135-145); Total Protein 7.7 g/dL (6.5-8.0)
--- NOTE | 2023-07-15 15:53 | PC.NURSE ---
Cell Phone [facility] [phone] [place] - [phone]
[2023-07-15 15:57] LABS: Troponin-I High Sensitivity < 2.7 ng/L (<3.5-17.0)
[2023-07-15 16:13] LABS: Erythrocyte Sedimentation Rate 27 MM/HR (0-20)
--- NOTE | 2023-07-15 17:34 | PC.NURSE ---
called for ride and clothing to be brought
== END 2023-07-15 18:19 | disposition home or self-care (01) ==
PROVIDERS: Physician Assistant; Emergency Provider Emergency Medicine; PCP Family Medicine
DX: G81.94 Hemiplegia, unspecified affecting left nondominant side (principal); R20.0 Anesthesia of skin; F41.9 Anxiety disorder, unspecified; R41.3 Other amnesia; M06.9 Rheumatoid arthritis, unspecified
CPT/HCPCS: 36415; 70450; 80053; 81003; 82550; 83735; 84484; 85025; 85652; 86140; 93005; 99284

== ENCOUNTER 2023-08-14 14:06 | Outpatient (AMB) | payer OTHER, SELFPAY ==
--- NOTE | 2023-08-14 14:09 | A.OFFPC_ITS ---
Vital Signs 08/14/23 14:10 Height 5 ft 8 in Weight 152 lb BMI 23.1 BP 126/70 Blood Pressure Location Lt brachial Position Sitting Respiration 12 Pulse 84 Pulse Source Pulse Oximeter Temp 97.5 F Temp Source Temporal Artery Scan Pulse Oximetry (%) 99 Oxygen Delivery Method Room Air Intake Visit Reasons: f/u anxiety/depression and chronic conditions Flap Lining Binder Required: No Accompanied by: Self / Same As Patient Allergies penicillin V Allergy (Unknown, Verified 08/14/23 14:16) hives Medication List - Last Reconciled 08/14/23 by Aguilar De Luna MD albuterol sulfate 90 mcg/actuation 2 puffs PO Q6H PRN aspirin (Adult Aspirin Regimen) 81 mg PO DAILY bupropion HCl 37.5 mg (1/2 x 75 mg) PO DAILY cetirizine (All Day Allergy (cetirizine)) 10 mg PO DAILY 90 days clotrimazole-betamethasone 1-0.05 % 1 appl topical BID 2 weeks fluticasone propionate 110 mcg/actuation (Flovent HFA) 1 puff inhalation Q12H 30 days sertraline 100 mg PO DAILY 90 days simvastatin 40 mg PO DAILY 90 days Tobacco use date assessed: 08/14/23 Fall risk assessment: 1 Fall in past year Last assessed Fall Risk: 08/14/23 Dental Screening Dental Screen Date: 08/14/23 Did you have a dental visit in the last 12 months?: Yes Did you have a dental problem in the last 6 months where you did not have access to dental care?: No Was dental information given to patient?: Patient has dentist HPI f/u anxiety/depression and chronic conditions HPI Details 67 y/o female presents to f/u anxiety/de pression and chronic conditions. Pt notes she had went to the ED 07/15/23 for a panic attack. She notes they had recommended her to take medications as prescribed. [facility] Medical History Hypercholesteremia Rheumatoid arthritis Broken leg Tachycardia Flushing Itch Close exposure to 2019 novel coronavirus Surgical History History of appendectomy History of shoulder surgery Social History Housing: House Alcohol intake: never Patient Tobacco Use Status: Former Tobacco user e-Cigarette/Vaping Use: Never Used Second Hand Smoke Exposure: No service: No Current occupational status: retired Current occupational exposures/hazards: No Cognitive needs: No Hearing needs: No Vision needs: No (Glasses) Questionnaire PHQ-9 Over the last 2 weeks, how often have you been bothered by any of the following problems? 1. Little interest or pleasure in doing things: more than half the days 2. Feeling down, depressed, or hopeless: not at all 3. Trouble falling or staying asleep, or sleeping too much: not at all 4. Feeling tired or having little energy: not at all 5. Poor appetite or overeating: not at all 6. Feeling bad about yourself - or that you are a failure or have let yourself or your family down: not at all 7. Trouble concentrating on things, such as reading the newspaper or watching television: not at all 8. Moving or speaking so slowly that other people could have noticed. Or the opposite - being so fidgety or restless that you have been moving around a lot more than usual: not at all 9. Thoughts that you would be better off or of hurting yourself in some way: not at all Total score: 2 Depression Screening Interpretation: Negative Source: Developed by Drs. Kamran Salas, Brooklyn Arias, Darrion Ayon and colleagues, with an educational mariusz from [employer]. Thrive Questionnaire Date Thrive assessed: 06/06/23 ARNOLDO-7 AMB Questionnaire ARNOLDO-7 Date ARNOLDO - 7 assessed: 08/14/23 Feeling nervous, anxious, or on edge: 0 = Not at all Not being able to stop or control worryin = Not at all Worrying too much about different things: 0 = Not at all Trouble relaxin = Not at all Being so restless that it is hard to sit still: 0 = Not at all Becoming easily annoyed or irritable: 2 = More than half the days Feeling afraid as if something awful might happen: 0 = Not at all Total ARNOLDO-7 score (0-4 normal; 5-9 mild; 10-14 moderate; 15-21 severe): 2 Source: Developed by Drs. Kamran L. MaritzaBrooklyn escamilla, Darrion Ayon and colleagues, with an educational mariusz from [employer]. Review of Systems Const Denies chills, Denies fatigue, Denies fever(s), Denies headache(s) and Denies weakness ENT Denies dizziness and Denies headache(s) Card Denies dyspnea Resp Denies cough, Denies dyspnea, Denies wheezing and Denies other (shortness of breath) Musc Denies numbness and Denies tingling Neuro Denies dizziness, Denies headache(s), Denies numbness, Denies tingling and Denies weakness Psych Reports anxiety and Reports depression Endo Denies fatigue Aller/Immun Denies wheezing Physical exam (Primary Care) Vital Signs: Last Vital Signs Temp 97.5 F 08/14/23 14:10 Pulse 84 08/14/23 14:10 Resp 12 08/14/23 14:10 BP 126/70 08/14/23 14:10 Pulse Ox 99 08/14/23 14:10 Oxygen Delivery Method Room Air 08/14/23 14:10 BMI result Body Mass Index 23.1 Tobacco/Smoking Status: Tobacco use Status Tobacco use date assessed 08/14/23 08/14/23 14:19 Patient Tobacco Use Status Former Tobacco user 08/14/23 14:09 e-Cigarette/Vaping Use Never Used 08/14/23 14:09 PHQ-9: PHQ-9 Score PHQ-9: Total score 2 08/14/23 14:23 Depression Screening Interpretation: Negative Thrive Assessment: Date of Thrive Assessment Date Thrive assessed 06/06/23 08/14/23 14:09 Const General: well developed; No acute distress Nutritional Appearance: well nourished Orientation/consciousness: patient oriented x3 HENMT Head: Yes normocephalic and Yes atraumatic Eyes General: appearance normal, both eyes and all related structures Pupils: Equal, round and reactive pupils present EOM: EOMs intact bilaterally Resp Effort & Inspection: normal respiratory effort Neuro General: patient oriented x3 and gait normal Cranial nerves: Yes Equal, round and reactive pupils present Psych Affect: normal affect Assessment and Plan Assessment & Plan (1) Anxiety and depression: Code(s): F41.9 - Anxiety disorder, unspecified; F32.A - Depression, unspecified Plan: Stable today and patient is generally stable but has episodes of high anxiety/panic which seem to be triggered by stressors. Continue current medication regimen Patient would benefit from a therapist to learn relationship skills and coping strategies. Also advised exercise (2) Memory changes: Code(s): R41.3 - Other amnesia Orders: Orders Microalbumin, Random (w Creat) Today I10 - Essential (primary) hypertension UA and rflx microscopic Today Z00.00 - Encounter for general adult medical examination without abnormal findings Comprehensive [place]. Panel Fast Today Z00.00 - Encounter for general adult medical examination without abnormal findings Lipid Panel Today Z00.00 - Encounter for general adult medical examination without abnormal findings TSH reflex Free T4 Today Z00.00 - Encounter for general adult medical examination without abnormal findings Complete Blood Count Auto Diff Today Z00.00 - Encounter for general adult medical examination without abnormal findings Referrals Nurse Navigator Referral F32.A - Depression, unspecified, F41.9 - Anxiety disorder, unspecified Coding Level of Care Code Est Pt Level 3 (43372) Diagnoses Anxiety and depression F41.9; F32.A Memory changes R41.3
[2023-08-14 14:10] VITALS: BP 126/70; PULSE 84; RESP 12; TEMP 36.4; O2SAT 99; BMI 23.1
== END 2023-08-14 15:15 | disposition home or self-care (01) ==
PROVIDERS: Visit Provider Family Medicine
DX: F41.9 Anxiety disorder, unspecified (principal); F32.A Depression, unspecified; R41.3 Other amnesia
CPT/HCPCS: 99213

== ENCOUNTER 2024-03-06 15:46 | Outpatient (AMB) | payer MEDICARE, SELFPAY ==
[2024-03-06 15:52] VITALS: BP 128/74; PULSE 74; O2SAT 99; BMI 24.1
--- NOTE | 2024-03-06 15:52 | A.OFFPC_ITS ---
Vital Signs 03/06/24 15:52 Height 5 ft 8 in Weight 158 lb 4 oz BMI 24.1 BP 128/74 Blood Pressure Location Lt brachial Position Sitting Pulse 74 Pulse Source Pulse Oximeter Pulse Oximetry (%) 99 Oxygen Delivery Method Room Air Intake Visit Reasons: CPE Follow up labs Intake Note: Patient is here for physical exam and follow up on labs. Allergies penicillin V Allergy (Unknown, Verified 03/06/24 15:58) hives Medication List - Last Reconciled 03/06/24 by Aguilar De Luna MD albuterol sulfate 90 mcg/actuation 2 puffs PO Q6H PRN aspirin (Adult Aspirin Regimen) 81 mg PO DAILY bupropion HCl 37.5 mg (1/2 x 75 mg) PO DAILY simvastatin 40 mg PO DAILY 90 days Tobacco use date assessed: 03/06/24 Fall risk assessment: 1 Fall in past year Last assessed Fall Risk: 03/06/24 Dental Screening Dental Screen Date: 03/06/24 Did you have a dental visit in the last 12 months?: Yes Did you have a dental problem in the last 6 months where you did not have access to dental care?: No Was dental information given to patient?: Patient has dentist HPI CPE Follow up labs HPI Details 68 y/o female presents for an extended e xam with f/u labs and health maintenance. No recent CPE-labs to review. Pt notes mood has improved and feels comfortable right now regarding anxiety/depression. Pt notes she has been diagnosed with osteoporosis and is on alendronate. Pt reports she is due for a mammogram. [facility] Medical History Hypercholesteremia Rheumatoid arthritis Broken leg Tachycardia Flushing Itch Close exposure to 2019 novel coronavirus Surgical History History of appendectomy History of shoulder surgery Social History Housing: House Alcohol intake: never Patient Tobacco Use Status: Former Tobacco user e-Cigarette/Vaping Use: Never Used Second Hand Smoke Exposure: No service: No Current occupational status: retired Current occupational exposures/hazards: No Cognitive needs: No Hearing needs: No Vision needs: No (Glasses) Questionnaire PHQ-9 Over the last 2 weeks, how often have you been bothered by any of the following problems? 1. Little interest or pleasure in doing things: not at all 2. Feeling down, depressed, or hopeless: not at all 3. Trouble falling or staying asleep, or sleeping too much: not at all 4. Feeling tired or having little energy: not at all 5. Poor appetite or overeating: not at all 6. Feeling bad about yourself - or that you are a failure or have let yourself or your family down: not at all 7. Trouble concentrating on things, such as reading the newspaper or watching television: not at all 8. Moving or speaking so slowly that other people could have noticed. Or the opposite - being so fidgety or restless that you have been moving around a lot more than usual: not at all 9. Thoughts that you would be better off or of hurting yourself in some way: not at all Total score: 0 Depression Screening Interpretation: Negative Depression Screening Done: Yes 02350 - PHQ-9 Billing: Yes Source: Developed by Drs. Kamran Salas, Brooklyn Arias, Darrion Ayon and colleagues, with an educational mariusz from [employer]. Thrive Questionnaire Date Thrive assessed: 03/06/24 I am a: Patient What is your living situation today?: I have a steady place to live Within the past 12 months, did the food you bought not last and you didn't have the money to get more?: Never true Within the past 12 months, did you worry whether your food would run out before you got money to buy more?: Never true Do you have trouble paying for medicines?: No Do you have trouble getting transportation to medical appointments?: No Do you have trouble paying your heating and electricity bill?: No Do you have trouble taking care of your child, family member or friend?: No Do you have trouble with day-to-day activities such as bathing, preparing meals, shopping, managing finances, etc.?: No Are you currently unemployed and looking for a job?: No Are you interested in more education?: No THRIVE Score: 0 AUDIT C Alcohol Use Questionnaire (AUDIT-C) 1. How often do you have a drink containing alcohol?: Monthly or less 2. How many drinks containing alcohol do you have on a typical day when you are drinking?: 1 or 2 3. How often do you have six or more drinks on one occasion?: Never Total Score: 1 ARNOLDO-7 AMB Questionnaire ARNOLDO-7 Date ARNOLDO - 7 assessed: 03/06/24 Feeling nervous, anxious, or on edge: 0 = Not at all Not being able to stop or control worryin = Not at all Worrying too much about different things: 0 = Not at all Trouble relaxin = Not at all Being so restless that it is hard to sit still: 0 = Not at all Becoming easily annoyed or irritable: 0 = Not at all Feeling afraid as if something awful might happen: 0 = Not at all Total ARNOLDO-7 score (0-4 normal; 5-9 mild; 10-14 moderate; 15-21 severe): 0 Source: Developed by Drs. Kamran Salas, Brooklyn Arias, Darrion Ayon and colleagues, with an educational mariusz from [employer]. ARNOLDO-7 Assessment Billing ARNOLDO-7 Assessment Tool: ARNOLDO-7 Assessment 09647 Review of Systems Const Denies chills, Denies fatigue, Denies fever(s), Denies headache(s) and Denies weakness Eyes Denies change in vision ENT Denies dizziness, Denies headache(s), Denies hearing loss, Denies nasal congestion, Denies sinus pain, Denies sinus pressure and Denies sore throat Card Denies chest pain, Denies lightheadedness, Denies dyspnea and Denies other (palpitations) Resp Denies cough, Denies dyspnea and Denies wheezing GI Denies abdominal pain, Denies melena, Denies hematochezia, Denies change in bowel habits, Denies dyspepsia and Denies nausea Denies hematuria and Denies dysuria Musc Denies abnormal gait, Denies myalgias, Denies arthralgias, Denies numbness and Denies tingling Skin/Breast Denies rash, Denies unusual bruising and Denies wounds Neuro Denies abnormal gait, Denies dizziness, Denies headache(s), Denies memory loss, Denies numbness, Denies Sensory deficit (Neuro), Denies tingling and Denies weakness Psych Denies anxiety, Denies depression and Denies memory loss Endo Denies cold intolerance, Denies fatigue, Denies heat intolerance, Denies polydipsia and Denies polyuria Austin/Lymph Denies easy bleeding and Denies easy bruising Aller/Immun Denies wheezing Physical exam (Primary Care) Vital Signs: Last Vital Signs Pulse 74 03/06/24 15:52 BP 128/74 03/06/24 15:52 Pulse Ox 99 03/06/24 15:52 Oxygen Delivery Method Room Air 03/06/24 15:52 BMI result Body Mass Index 24.1 Tobacco/Smoking Status: Tobacco use Status Tobacco use date assessed 03/06/24 03/06/24 16:02 Patient Tobacco Use Status Former Tobacco user 03/06/24 16:02 e-Cigarette/Vaping Use Never Used 03/06/24 16:02 PHQ-9: PHQ-9 Score PHQ-9: Total score 0 03/06/24 16:06 Depression Screening Interpretation: Negative Thrive Assessment: Date of Thrive Assessment Date Thrive assessed 03/06/24 03/06/24 16:06 Const General: no acute distress, well developed, alert and awake Nutritional Appearance: well nourished Orientation/consciousness: patient oriented x3 HENMT Head: Yes normocephalic and Yes atraumatic Ears: hearing grossly normal bilaterally and TM's normal bilaterally General nose exam: Normal external nose present and Normal nares present Mouth: Normal oral and palatal mucosa present and moist mucous membranes Teeth and gingiva: dentition normal Throat: Yes posterior oropharynx normal Eyes General: appearance normal, both eyes and all related structures Pupils: Equal, round and reactive pupils present and Pupil accommodation reflex normal EOM: EOMs intact bilaterally Neck Neck: Yes normal visual inspection, Yes no lymphadenopathy and Yes trachea midline Thyroid: Thyroid normal Carotids: no bruits Lymphatic: no lymphadenopathy noted Chest Chest palpation & inspection: normal inspection of the chest Resp Effort & Inspection: normal respiratory effort Auscultation: clear to auscultation bilaterally Cardio Rate: regular rate Rhythm: regular rhythm Heart sounds: S1 normal heart sound present, S2 normal heart sound present, no gallops, no murmurs and no rubs Bruits: no abdominal aortic bruits and no carotid bruits GI Palpation (GI): No Abdominal aortic bruit present, Soft to palpation, nontender, No hepatosplenomegaly present and No Rebound tenderness present Auscultation: normal bowel sounds General: Yes no CVA tenderness Back/Spine/Pelvis Back: no CVA tenderness Cervical Spine: cervical ROM normal and No Cervical spine tenderness Thoracic/Lumbar Spine: thoraco-lumbar ROM normal, No pain with thoraco-lumbar ROM, No thoracic spinal tenderness and No lumbar spinal tenderness Skin Lesions: no lesions Rashes: no rashes Trauma: no lacerations or abrasions Wounds: no wounds Nails: normal Neuro General: patient oriented x3 Cranial nerves: Yes Equal, round and reactive pupils present Cognition (Neuro): normal cognition Gait exam (Neuro): Normal gait present Motor exam (neuro): 5/5 motor strength present throughout Sensory Exam: No Sensory deficit (Neuro) Deep tendon reflexes (DTR's): Right patellar reflex intensity grade: 2+ and Left patellar reflex intensity grade: 2+ Extrem General: Yes normal to inspection and No edema Psych Appearance: grossly normal Affect: normal affect Attitude: cooperative Thought process: Normal thought process present Assessment and Plan Assessment & Plan (1) Anxiety and depression: Code(s): F41.9 - Anxiety disorder, unspecified; F32.A - Depression, unspecified Plan: Patient?says?anxiety?depression?have?essentially?resolved?since?she?retired She?will?let?me?know?if?anything?worsens?or?sh e?would?like?to?pursue?seeing?a?therapist?again. She?can?continue?bupropion (2) Osteoporosis: Code(s): M81.0 - Age-related osteoporosis without current pathological fracture Plan: Her?pediatrician managing partner,??Bandar?started?her?on?alendronate.??She?is?tolerating?t his?well Follow-up?with?rheumatology?as?recommended (3) Screening for colon cancer: Code(s): Z12.11 - Encounter for screening for malignant neoplasm of colon Plan: No?recent?colonoscopy Referred?to?GI (4) Breast cancer screening by mammogram: Code(s): Z12.31 - Encounter for screening mammogram for malignant neoplasm of breast Plan: No?recent?mammogram Mammogram?ordered (5) Adult general medical exam: Code(s): Z00.00 - Encounter for general adult medical examination without abnormal findings Plan: 68-year-old?woman?presents?for?extended?exam Encouraged?healthy?diet?with?active?lifestyle?and?plenty?of?exercise Orders: Orders MM tomosynthesis screening BI Today Z12.31 - Encounter for screening mammogram for malignant neoplasm of breast Referrals Gastroenterology Referral Z12.11 - Encounter for screening for malignant neoplasm of colon Coding Level of Care Code Est Pt Level 4 (72612) Diagnoses Anxiety and depression F41.9; F32.A Osteoporosis M81.0 Screening for colon cancer Z12.11 Breast cancer screening by mammogram Z12.31 Adult general medical exam Z00.00 Additional Codes ARNOLDO-7 Assessment Billing - ARNOLDO-7 Assessment Tool: ARNOLDO-7 Assessment 59023 ([id number])
== END 2024-03-06 16:35 | disposition home or self-care (01) ==
PROVIDERS: PCP Family Medicine; Visit Provider Family Medicine
DX: M81.0 Age-related osteoporosis without current pathological fracture (principal); F41.9 Anxiety disorder, unspecified; F32.A Depression, unspecified; Z12.11 Encounter for screening for malignant neoplasm of colon; Z12.31 Encounter for screening mammogram for malignant neoplasm of breast
CPT/HCPCS: 99214

== ENCOUNTER 2024-03-31 08:45 | Outpatient (REF) | payer MEDICARE, SELFPAY ==
[2024-03-31 11:16] LABS: MANUAL DIFF FLAG NO
[2024-03-31 11:36] LABS: Appearance Urine Clear; Color Urine Yellow; Glucose Urine UA Negative (Negative); Leukocyte Esterase Urine Negative (Negative); Nitrite Urine Negative (Negative); PH 6.5 (5.0-9.0); UMIC TRIGGER UA YES; Urine Blood Small (1+) (Negative); Urine Ketones Negative (Negative); Urine Protein Negative (Neg-Trace)
[2024-03-31 11:44] LABS: Basophils Absolute Auto 0.1 X10*3/uL (0.0-0.2); Basophils Percent Auto 0.9 % (0-2); Eosinophils Absolute Auto 0.1 X10*3/uL (0.0-0.4); Eosinophils Percent Auto 1.2 % (0-4); Hematocrit 37.8 % (37.0-47.0); Hemoglobin 12.3 g/dl (12.0-16.0); Imm Gran Abs Auto 0.02 X10*3/uL (0.00-0.03); Imm Gran Pct Auto 0.3 % (0.0-0.4); Lymphocytes Absolute Auto 1.7 X10*3/uL (1.2-4.9); Lymphocytes Percent Auto 25.8 % (20-40); Mean Corpuscular HGB Conc 32.5 g/dl (31.0-35.0); Mean Corpuscular Hemoglobin 29.1 pg (27.0-33.0); Mean Corpuscular Volume 89.6 fL (80.0-98.0); Mean Platelet Volume 10.4 fL (9.4-12.3); Monocytes Absolute Auto 0.5 X10*3/uL (0.1-1.2); Monocytes Percent Auto 7.3 % (2-11); Neutrophils Absolute Auto 4.3 x10*3/uL (2.0-8.3); Neutrophils Percent Auto 64.5 % (45-73); Platelet Count 291 X10*3/uL (160-400); Red Blood Count 4.22 X10*6/uL (4.20-5.50); Red Cell Distribution Width 12.8 % (11.0-16.0); White Blood Count 6.7 X10*3/uL (4.8-10.8)
[2024-03-31 11:53] LABS: Bacteria Urine None Seen (None Seen); Hyaline Casts Urine 0-2 /LPF (0-2); RBC Urine 0-2 /HPF (0-2); Squamous Epithelial Cell Urine 0-2 /HPF (0-2); WBC Urine 0-5 /HPF (0-5)
[2024-03-31 12:17] LABS: Creatinine Urine 175.21 mg/dL; Microalbum/Creatinine Ratio Ur 9.1 ug/mg cr (<30)
[2024-03-31 12:23] LABS: Alanine Aminotransferase 11 U/L (0-31); Albumin Level 4.2 g/dL (3.5-5.0); Alkaline Phosphatase 48 U/L (39-117); Anion Gap 12 (12-20); Aspartate Amino Transferase 18 U/L (5-31); Bilirubin Total 0.4 mg/dL (0.0-1.0); Blood Urea Nitrogen 17 mg/dL (9-16); Calcium 9.5 mg/dL (8.4-10.2); Carbon Dioxide 26 mmol/L (22-29); Chloride 108 mmol/L (96-108); Cholesterol 172 mg/dL (<200); Estimated Glomerular Filt Rate 60; Glucose Fasting 91 mg/dL (60-99); HDL Cholesterol 47 mg/dL (>40); LDL Cholesterol Calculated 100 mg/dL (<100); Potassium 4.2 mmol/L (3.3-5.1); Sodium 142 mmol/L (135-145); Total Protein 7.6 g/dL (6.5-8.0); Triglycerides 127 mg/dL (<150)
== END 2024-03-31 08:46 | disposition home or self-care (01) ==
LOC: HO.WFDLDS 08:45
PROVIDERS: Visit Provider Family Medicine
DX: Z00.00 Encounter for general adult medical examination without abnormal findings (principal); I10 Essential (primary) hypertension
CPT/HCPCS: 36415; 80053; 80061; 81001; 82043; 82570; 85025

== ENCOUNTER → 2024-04-08 15:52 | Outpatient (AMB) | payer MEDICARE, SELFPAY ==
--- NOTE | 2024-04-08 15:48 | A.OFFPC_ITS ---
Intake Visit Reasons: Review labs Intake Note: Patient is scheduled to review labs today. Allergies penicillin V Allergy (Unknown, Verified 04/08/24 15:49) hives Medication List - Last Reconciled 04/08/24 by Aguilar De Luna MD albuterol sulfate 90 mcg/actuation 2 puffs PO Q6H PRN aspirin (Adult Aspirin Regimen) 81 mg PO DAILY bupropion HCl 37.5 mg (1/2 x 75 mg) PO DAILY simvastatin 40 mg PO DAILY 90 days Tobacco use date assessed: 04/08/24 Fall risk assessment: No Falls in past year Last assessed Fall Risk: 04/08/24 Dental Screening Dental Screen Date: 03/06/24 HPI Review labs HPI Details 68 y/o female presents to review CPE-lab s via telemedicine. Also ordered her mammogram and referred her to GI for colonoscopy. Labs were drawn 03/31/24. Reviewed labs with pt. Triglycerides 127. TC 172. LDL 100. HDL 47. She is on simvastatin 40mg daily. [facility] Medical History (Updated 04/08/24 @ 16:17 by Braydon Sneed) Hypercholesteremia Rheumatoid arthritis Broken leg Tachycardia Flushing Itch Close exposure to 2019 novel coronavirus Surgical History History of appendectomy History of shoulder surgery Social History Housing: House Alcohol intake: never Patient Tobacco Use Status: Former Tobacco user e-Cigarette/Vaping Use: Never Used Second Hand Smoke Exposure: No service: No Current occupational status: retired Current occupational exposures/hazards: No Cognitive needs: No Hearing needs: No Vision needs: No (Glasses) Questionnaire Thrive Questionnaire Date Thrive assessed: 03/06/24 ARNOLDO-7 AMB Questionnaire ARNOLDO-7 Date ARNOLDO - 7 assessed: 03/06/24 Source: Developed by Drs. Kamran Salas, Brooklyn Arias, Darrion dutta, with an educational mariusz from [employer]. Physical exam (Primary Care) Tobacco/Smoking Status: Tobacco use Status Tobacco use date assessed 04/08/24 04/08/24 15:52 Patient Tobacco Use Status Former Tobacco user 04/08/24 15:52 e-Cigarette/Vaping Use Never Used 04/08/24 15:52 Thrive Assessment: Date of Thrive Assessment Date Thrive assessed 03/06/24 04/08/24 15:52 Telehealth Telehealth Telehealth Platform: Telephone Location of provider rendering services: practice address Location of patient: address on file Patient Identification confirmed using: Name, : Yes Telehealth method: voice only Patient verbally consented to treatment: Yes Patient verbally consented to billing insurance company: Yes Patient informed of any privacy concerns related to visit: Yes Minutes spent on Phone/Video with Pt.: 5 Assessment and Plan Assessment & Plan (1) Hypercholesteremia: Code(s): E78.00 - Pure hypercholesterolemia, unspecified Plan: LDL?cholesterol?is?at?100 Recommended?goal?of?less?than?100 No?need?to?adjust?her?simvastatin.??Advised?she?work?on?diet?low?in?saturated?fa ts?and?cholesterol. (2) Breast cancer screening by mammogram: Code(s): Z12.31 - Encounter for screening mammogram for malignant neoplasm of breast Plan: Ordered?mammogram?and?she?says?she?will?get?this?scheduled (3) Screening for colon cancer: Code(s): Z12.11 - Encounter for screening for malignant neoplasm of colon Plan: She?is?referred?to?Gastroenterology Coding Level of Care Code Tele Est Pt Level 2 (83081) Diagnoses Hypercholesteremia E78.00 Breast cancer screening by mammogram Z12.31 Screening for colon cancer Z12.11
== END ==
PROVIDERS: PCP Family Medicine; Visit Provider Family Medicine
DX: E78.00 Pure hypercholesterolemia, unspecified (principal); Z12.31 Encounter for screening mammogram for malignant neoplasm of breast; Z12.11 Encounter for screening for malignant neoplasm of colon
CPT/HCPCS: 99441

== ENCOUNTER 2024-05-06 11:10 | Outpatient (REF) | payer MEDICARE, SELFPAY ==
--- NOTE | ~2024-05-06 | MM_ITS ---
EXAMINATION: MM SCREENING DIGITAL BREAST TOMOSYNTHESIS, BILATERAL CLINICAL INFORMATION: Screening. Asymptomatic. COMPARISON: Mammography: There are no prior mammograms available for comparison. TECHNIQUE: Digital breast tomosynthesis is performed in both the craniocaudal and mediolateral oblique views along with computer-aided detection (CAD). Synthesized 2D images are generated from the tomosynthesis. FINDINGS: The breasts are heterogeneously dense, which may obscure small masses (ACR BI-RADS breast composition Category c). There are no significant masses, abnormal calcifications, or other abnormalities. MM/MM tomosynthesis screening BI IMPRESSION: No mammographic evidence of malignancy. ASSESSMENT: BI-RADS BI-RADS 1 - Negative RECOMMENDATION: Routine annual mammography screening. 1 year F/U This examination should not preclude the clinical evaluation of a suspicious palpable abnormality. This patient's information was entered into a reminder system with a target due date for their next mammogram.
== END 2024-05-06 11:11 | disposition home or self-care (01) ==
LOC: HO.MAMMO 11:10
PROVIDERS: PCP Family Medicine; Visit Provider Family Medicine
DX: Z12.31 Encounter for screening mammogram for malignant neoplasm of breast (principal)
CPT/HCPCS: 77063; 77067

== ENCOUNTER → 2024-05-06 11:45 | Outpatient (BNV) | payer MEDICARE, SELFPAY | PROVIDERS: PCP Family Medicine; Visit Provider Radiology Diagnostic Radiology | DX: Z12.31 Encounter for screening mammogram for malignant neoplasm of breast (principal) | CPT/HCPCS: 77063; 77067 ==

== ENCOUNTER 2024-07-12 09:49 | Emergency (ER) | payer MEDICARE, SELFPAY ==
[2024-07-12 09:57] VITALS: BP 153/74; PULSE 99; RESP 22; TEMP 36.8; O2SAT 100; BMI 22.9
--- NOTE | 2024-07-12 10:05 | ECG_ITS ---
Test Reason : GENERAL WEAKNESS Blood Pressure : / mmHG Vent. Rate : 072 BPM Atrial Rate : 072 BPM P-R Int : 126 ms QRS Dur : 086 ms QT Int : 390 ms P-R-T Axes : 038 095 066 degrees QTc Int : 427 ms Normal sinus rhythm Rightward axis Borderline ECG When compared with ECG of 15-JUL-2023 14:35, Vent. rate has decreased BY 49 BPM Nonspecific T wave abnormality no longer evident in Inferior leads Nonspecific T wave abnormality, improved in Anterior leads Referred By: Generic ED Physician Electronically Signed By:MICHELET DIOR
[2024-07-12 10:25] LABS: MANUAL DIFF FLAG NO
[2024-07-12 10:26] VITALS: BP 149/78; PULSE 72; RESP 20; TEMP 36.8; O2SAT 100
[2024-07-12 10:26] LABS: Basophils Absolute Auto 0.1 X10*3/uL (0.0-0.2); Eosinophils Absolute Auto 0.1 X10*3/uL (0.0-0.4); Eosinophils Percent Auto 1.7 % (0-4); Hematocrit 36.6 % (37.0-47.0); Hemoglobin 12.3 g/dl (12.0-16.0); Imm Gran Abs Auto 0.02 X10*3/uL (0.00-0.03); Imm Gran Pct Auto 0.3 % (0.0-0.4); Lymphocytes Absolute Auto 1.9 X10*3/uL (1.2-4.9); Lymphocytes Percent Auto 31.7 % (20-40); Mean Corpuscular HGB Conc 33.6 g/dl (31.0-35.0); Mean Corpuscular Hemoglobin 29.4 pg (27.0-33.0); Mean Corpuscular Volume 87.6 fL (80.0-98.0); Mean Platelet Volume 9.3 fL (9.4-12.3); Monocytes Absolute Auto 0.5 X10*3/uL (0.1-1.2); Monocytes Percent Auto 7.8 % (2-11); Neutrophils Absolute Auto 3.4 x10*3/uL (2.0-8.3); Neutrophils Percent Auto 57.5 % (45-73); Platelet Count 311 X10*3/uL (160-400); Red Blood Count 4.18 X10*6/uL (4.20-5.50); Red Cell Distribution Width 12.6 % (11.0-16.0); White Blood Count 5.9 X10*3/uL (4.8-10.8)
--- NOTE | 2024-07-12 10:26 | ED_ITS ---
HPI - Chest Pain General Chief Complaint: Chest Pain Stated Complaint: sob, leg pain Time Seen by Provider: 07/12/24 10:13 Source: patient, family and old records reviewed Mode of arrival: ambulatory Limitations: no limitations History of Present Illness ED Provider: ELISSA VELAZQUEZ narrative: 68 yo female with PMH of HLD, osteoporosis, panic attacks and limitations due to anxiety such as inability to be passenger in car or going to certain events since ID-19 pandemic, depression, tachycardia here with c/o anxiety and panic since family event on . She had to go in the house and was crying. She denies significant event but since then has been very anxious. She notes yesterday she cried all day and had some chest pain. states she woke up again with anxiety tearful and breathing rapid. She denies recent travel or procedures. Does not have a therapist. No SI/HI. MD complaint: other (anxiety, panic attack) Onset (ago): day(s) (2) Timing of current episode: constant Prior episodes: Yes Onset: during rest Pain location: substernal Pain radiation: none Severity: mild Quality: tightness Relieving factors: nothing Exacerbating factors: stress Context: other (hx of same in past but this is lasting longer than usual) Associated symptoms: dyspnea, sense of impending doom and palpitations Treatment prior to arrival: none Related Data Home Medications ?Medication ?Instructions ?Recorded ?Confirmed aspirin 81 mg tablet,delayed 81 mg PO DAILY 08/15/21 04/08/24 release (Adult Aspirin Regimen) Previous Rx's ?Medication ?Instructions ?Recorded albuterol sulfate 90 mcg/actuation 2 puff PO Q6H PRN for wheezing 11/24/21 aerosol inhaler #8.5 grams bupropion HCl 75 mg tablet 37.5 mg (1/2 x 75 mg) PO DAILY 90 05/28/24 days #45 tabs simvastatin 40 mg tablet 40 mg PO DAILY 90 days #90 tabs 06/23/24 lorazepam 0.5 mg tablet (Ativan) 0.5 mg PO DAILY PRN anxiety #10 07/12/24 tabs Allergies Allergy/AdvReac Type Severity Reaction Status Date / Time penicillin V Allergy Unknown hives Verified 07/12/24 10:02 Review of Systems 2 Review of Systems: Constitutional : No Weight loss, No Fever, No Chills ENT/Mouth : No sore throat, No Rhinorrhea Eyes: No Eye Pain, No Swelling Cardiovascular : pos Chest Pain, pos SOB, no Dyspnea on Exertion, No Orthopnea, No Edema, pos Palpitations Respiratory : No Cough, No Sputum Gastrointestinal : pos Nausea, No Vomiting, No Diarrhea, No abdominal Pain, No Hematochezia, No Melena Genitourinary : No Dysuria, No Urinary Frequency Musculoskeletal : No joint pain, No Myalgias, No Joint Swelling Skin : No Skin Lesions, No rash Neuro : No Weakness, No Numbness, No Dizziness, No Headache Psych : pos Anxiety/Panic, No Depression Heme/Lymph: No Bruising, No Lymphadenopathy Endocrine : No Polyuria, No Polydipsia All other systems reviewed and are negative PMFSH Past Medical History Attestation statement: The following information was validated with the patient. Source: old records reviewed Medical History Hypercholesteremia Rheumatoid arthritis Broken leg Tachycardia Flushing Itch Close exposure to 2019 novel coronavirus Surgical History History of appendectomy History of shoulder surgery Social History Social History Housing: House Alcohol intake: never Patient Tobacco Use Status: Former Tobacco user e-Cigarette/Vaping Use: Never Used Second Hand Smoke Exposure: No Do you have a plan to hurt others: No Plan service: No Current occupational status: retired Current occupational exposures/hazards: No Cognitive needs: No Hearing needs: No Vision needs: No (Glasses) Physical Exam 2 Vital Signs: Vital Signs: Last Vital Signs Temp 98.2 F 07/12/24 10:26 Pulse 72 07/12/24 10:26 Resp 20 07/12/24 10:26 BP 149/78 H 07/12/24 10:26 Pulse Ox 100 07/12/24 10:26 O2 Del Method Room Air 07/12/24 10:26 BMI result Body Mass Index 22.9 Appearance: Alert. Oriented X3. No acute distress. anxious rapid breathing Eyes: Pupils equal, round and reactive to light. ENT: Pharynx normal. Neck: Normal inspection. Neck supple. CVS: Normal heart rate and rhythm. Pulses normal. Respiratory: No respiratory distress. Breath sounds normal. Abdomen: Soft and nontender. Skin: Skin warm and dry. Normal skin color. Normal skin turgor. Extremities: No lower extremity edema. No calf ttp Neuro: Oriented X 3. No motor deficit. No sensory deficit. Medical Decision Making Medical Decision Making [facility] Narrative: 68 yo female with PMH of HLD, osteoporosis, panic attacks, depression, tachycardia here with c/o palpitations, anxiety panic attacks chest tightness that all started after family came to visit at this time no hypoxia, tachycardia, or signs of DVT to suggest VTE her symptoms are atypical for ACS, EKG and trop negative, has distal pulses doubt dissection. No infectious symptoms reported. At this time will start on low dose PRN ativan and refer to therapy. Suspect panic attacks Differential Diagnosis Differential Diagnoses: The differential diagnosis associated with the presentation includes panic attacks, atypical chest pain Admission/Observation Consideration of admission/observation: Escalation of care including admission/observation considered wokr up negative stable for DC Lab Data [facility] Lab Attestation statement: I reviewed the patient's lab results. 07/12/24 10:21 07/12/24 10:21 Labs: Lab Results 07/12/24 Range/Units 10:21 WBC 5.9 (4.8-10.8) X10*3/uL RBC 4.18 L (4.20-5.50) X10*6/uL Hgb 12.3 (12.0-16.0) g/dl Hct 36.6 L (37.0-47.0) % MCV 87.6 (80.0-98.0) fL MCH 29.4 (27.0-33.0) pg MCHC 33.6 (31.0-35.0) g/dl RDW 12.6 (11.0-16.0) % Plt Count 311 (160-400) X10*3/uL MPV 9.3 L (9.4-12.3) fL Immature Gran % (Auto) 0.3 (0.0-0.4) % Neut % (Auto) 57.5 (45-73) % Lymph % (Auto) 31.7 (20-40) % [place] % (Auto) 7.8 (2-11) % Eos % (Auto) 1.7 (0-4) % Baso % (Auto) 1.0 (0-2) % Lymph # (Auto) 1.9 (1.2-4.9) X10*3/uL [place] # (Auto) 0.5 (0.1-1.2) X10*3/uL Eos # (Auto) 0.1 (0.0-0.4) X10*3/uL Baso # (Auto) 0.1 (0.0-0.2) X10*3/uL Abs Immat Gran (auto) 0.02 (0.00-0.03) X10*3/uL Absolute Neuts (auto) 3.4 (2.0-8.3) x10*3/uL Absolute Nucleated RBC 0.000 (0.0-0.012) X10*3/uL Nucleated RBC % (auto) 0.0 (0.0-0.2) /100WBC Sodium 140 (135-145) mmol/L Potassium 4.8 (3.3-5.1) mmol/L Chloride 110 H (96-108) mmol/L Carbon Dioxide 20 L (22-29) mmol/L Anion Gap 15 (12-20) BUN 12 (9-16) mg/dL Creatinine 1.05 (0.5-1.4) mg/dL Estim Creat Clear Calc 55.0 Estimated GFR 52 Random Glucose 88 (60-115) mg/dL Calcium 9.9 (8.4-10.2) mg/dL Total Bilirubin 0.5 (0.0-1.0) mg/dL Direct Bilirubin 0.2 (0.0-0.5) mg/dL AST 25 (5-31) U/L ALT 19 (0-31) U/L Alkaline Phosphatase 57 (39-117) U/L Total Protein 7.7 (6.5-8.0) g/dL Albumin 4.1 (3.5-5.0) g/dL Lipase 21 (8-78) U/L Independent Interpretation I performed an independent interpretation of an: EKG Interpretation: Rate: 72 Rhythm: NSR [place]: normal Normal P waves. Normal PÉREZ. Normal QRS complex. ST T wave : inverted t wave V1, flat t wave aVL qTC: 427 prior studies: no change from prior The study has been interpreted contemporaneously by me. . Independent Historian Clinical information obtained from an independent historian. History obtained from or confirmed by: Spouse External Record Review External record reviewed: Inpatient record Prescription Management I considered prescription management with: Other Discharge Plan Discharge Clinical Impression: Panic attack, Atypical chest pain Patient Disposition: Home, Self-Care Instructions: Chest Pain (ED), Anxiety (ED) Additional Instructions: please call and follow up with therapy - [facility] number listed below return for worsening symptoms or concerns EKG, labs reassuring today given dose of ativan for anxiolytic Prescriptions: New lorazepam [Ativan] 0.5 mg tablet 0.5 mg PO DAILY PRN (Reason: anxiety) Qty: 10 0RF No Action albuterol sulfate 90 mcg/actuation HFA aerosol inhaler 2 puff PO Q6H PRN (Reason: for wheezing) Qty: 8.5 5RF bupropion HCl 75 mg tablet 37.5 mg PO DAILY 90 Days Qty: 45 3RF simvastatin 40 mg tablet 40 mg PO DAILY 90 Days Qty: 90 2RF aspirin [Adult Aspirin Regimen] 81 mg tablet,delayed release (DR/EC) 81 mg PO DAILY Referrals: [facility] [Outside] Print Language: [place] Citizen
[2024-07-12 10:43] LABS: Alanine Aminotransferase 19 U/L (0-31); Albumin Level 4.1 g/dL (3.5-5.0); Alkaline Phosphatase 57 U/L (39-117); Anion Gap 15 (12-20); Aspartate Amino Transferase 25 U/L (5-31); Bilirubin Direct 0.2 mg/dL (0.0-0.5); Bilirubin Total 0.5 mg/dL (0.0-1.0); Blood Urea Nitrogen 12 mg/dL (9-16); Calcium 9.9 mg/dL (8.4-10.2); Carbon Dioxide 20 mmol/L (22-29); Chloride 110 mmol/L (96-108); Estimated Glomerular Filt Rate 52; Glucose Random 88 mg/dL (60-115); Lipase 21 U/L (8-78); Potassium 4.8 mmol/L (3.3-5.1); Sodium 140 mmol/L (135-145); Total Protein 7.7 g/dL (6.5-8.0)
[2024-07-12 10:50] LABS: Troponin-I High Sensitivity < 2.7 ng/L (<3.5-17.0)
[2024-07-12] MEDS: LORazepam 0.5 MG TABLET PO (10:59)
[2024-07-12 11:25] LABS: B Type Natriuretic Peptide 20 pg/mL (<100)
[2024-07-12 11:50] VITALS: BP 130/70; PULSE 83; RESP 18; TEMP 36.8; O2SAT 98
== END 2024-07-12 11:51 | disposition home or self-care (01) ==
PROVIDERS: Emergency Provider Emergency Medicine; PCP Family Medicine
DX: F41.0 Panic disorder [episodic paroxysmal anxiety] (principal); R07.89 Other chest pain; F41.9 Anxiety disorder, unspecified; E78.00 Pure hypercholesterolemia, unspecified; R06.02 Shortness of breath; Z79.899 Other long term (current) drug therapy
CPT/HCPCS: 36415; 80048; 80076; 83690; 83880; 84484; 85025; 93005; 99283; 99285

== ENCOUNTER 2024-09-12 13:33 | Outpatient (AMB) | payer MEDICARE, SELFPAY ==
--- NOTE | 2024-09-12 13:45 | A.OFFPC_ITS ---
Vital Signs 09/12/24 13:47 Respiration 16 Pulse 84 Pulse Source Pulse Oximeter Temp 97.0 F Temp Source Temporal Artery Scan Pulse Oximetry (%) 98 Oxygen Delivery Method Room Air Intake Visit Reasons: Chest pain - Anxiety Intake Note: f/u anxiety Allergies penicillin V Allergy (Unknown, Verified 09/12/24 13:46) hives Tobacco use date assessed: 04/08/24 Dental Screening Dental Screen Date: 03/06/24 [facility] Medical History Hypercholesteremia Rheumatoid arthritis Broken leg Tachycardia Flushing Itch Close exposure to 2019 novel coronavirus Surgical History History of appendectomy History of shoulder surgery Social History Housing: House Alcohol intake: never Patient Tobacco Use Status: Former Tobacco user e-Cigarette/Vaping Use: Never Used Second Hand Smoke Exposure: No service: No Current occupational status: retired Current occupational exposures/hazards: No Cognitive needs: No Hearing needs: No Vision needs: No (Glasses) Questionnaire PHQ-9 Over the last 2 weeks, how often have you been bothered by any of the following problems? 61351 - PHQ-9 Billing: Patient declined-do not bill Source: Developed by Drs. Kamran Salas, Brooklyn Arias, Darrion Ayon and colleagues, with an educational mariusz from [employer]. Thrive Questionnaire Date Thrive assessed: 03/06/24 ARNOLDO-7 AMB Questionnaire ARNOLDO-7 Date ARNOLDO - 7 assessed: 09/12/24 Source: Developed by Drs. Kamran Salas, Brooklyn Arias, Darrion Ayon and colleagues, with an educational mariusz from [employer]. ARNOLDO-7 Assessment Billing ARNOLDO-7 Assessment Tool: pt declined-do not bill Physical exam (Primary Care) Vital Signs: Last Vital Signs Temp 97.0 F 09/12/24 13:47 Pulse 84 09/12/24 13:47 Resp 16 09/12/24 13:47 Pulse Ox 98 09/12/24 13:47 Oxygen Delivery Method Room Air 09/12/24 13:47 Tobacco/Smoking Status: Tobacco use Status Tobacco use date assessed 04/08/24 09/12/24 13:49 Patient Tobacco Use Status Former Tobacco user 09/12/24 13:49 e-Cigarette/Vaping Use Never Used 09/12/24 13:49 Thrive Assessment: Date of Thrive Assessment Date Thrive assessed 03/06/24 09/12/24 13:49 Coding Level of Care Code Est Pt Level 3 (02768) Diagnoses Anxiety and depression F41.9; F32.A Assessment & Plan Assessment & Plan (1) Anxiety and depression: Code(s): F41.9 - Anxiety disorder, unspecified; F32.A - Depression, unspecified Category: Medical Plan: Anxiety?and?patient?had?a?panic?attack?in?June. Was?evaluated?in?the?ED.?EKG?and?workup?negative?for?ACS. Currently?taking?bupropion.??She?has?had?no?further?panic?attacks. Patient?agrees?to?increase?bupropion?to?a?total?daily?dose?of?75?mg. Will?ask?the?nurse?navigator?to?help?connect?her?with?a?therapist. Orders: Orders Comprehensive [place]. Panel Fast Today Z00.00 - Encounter for general adult medical examination without abnormal findings Complete Blood Count Auto Diff Today Z00.00 - Encounter for general adult medical examination without abnormal findings TSH reflex Free T4 Today Z00.00 - Encounter for general adult medical examination without abnormal findings UA and rflx microscopic Today Z00.00 - Encounter for general adult medical examination without abnormal findings Lipid Panel Today Z00.00 - Encounter for general adult medical examination without abnormal findings Microalbumin, Random (w Creat) Today I10 - Essential (primary) hypertension Referrals Nurse Navigator Referral F32.A - Depression, unspecified, F41.9 - Anxiety disorder, unspecified Medications: Changed From bupropion HCl 37.5 mg (1/2 x 75 mg) PO DAILY 90 days 45 tabs 3RF To bupropion HCl 37.5 mg (1/2 x 75 mg) PO BID 90 days 90 tabs 3RF
[2024-09-12 13:47] VITALS: PULSE 84; RESP 16; TEMP 36.1; O2SAT 98
== END 2024-09-12 14:27 | disposition home or self-care (01) ==
PROVIDERS: PCP Family Medicine; Visit Provider Family Medicine
DX: F41.9 Anxiety disorder, unspecified (principal); F32.A Depression, unspecified

== ENCOUNTER → 2024-09-12 13:33 | Outpatient (BNVA) | payer MEDICARE, SELFPAY | PROVIDERS: PCP Family Medicine; Visit Provider Family Medicine | DX: F41.9 Anxiety disorder, unspecified (principal); F32.A Depression, unspecified | CPT/HCPCS: 99212 ==

== ENCOUNTER 2025-06-04 12:05 | Outpatient (REF) | payer MEDICARE, SELFPAY | END 2025-06-04 12:06 | disposition home or self-care (01) | LOC: HO.MAMMO 12:05 | PROVIDERS: PCP Family Medicine; Visit Provider Family Medicine | DX: Z12.31 Encounter for screening mammogram for malignant neoplasm of breast (principal) | CPT/HCPCS: 77063; 77067 ==

== ENCOUNTER → 2025-06-04 12:15 | Outpatient (BNV) | payer MEDICARE, SELFPAY | PROVIDERS: PCP Family Medicine; Visit Provider Internal Medicine | DX: Z12.31 Encounter for screening mammogram for malignant neoplasm of breast (principal) | CPT/HCPCS: 77063; 77067 ==

== ENCOUNTER 2025-06-22 12:48 | Outpatient (REF) | payer MEDICARE, SELFPAY ==
[2025-06-22 13:59] LABS: MANUAL DIFF FLAG NO
[2025-06-22 14:12] LABS: Hematocrit 36.3 % (37.0-47.0); Hemoglobin 12.2 g/dl (12.0-16.0); Imm Gran Abs Auto 0.03 X10*3/uL (0.00-0.03); Imm Gran Pct Auto 0.4 % (0.0-0.4); Lymphocytes Absolute Auto 2.2 X10*3/uL (1.2-4.9); Mean Corpuscular HGB Conc 33.6 g/dl (31.0-35.0); Mean Corpuscular Hemoglobin 29.2 pg (27.0-33.0); Mean Corpuscular Volume 86.8 fL (80.0-98.0); NRBC Abs Auto 0.000 X10*3/uL (0.0-0.012); NRBC Pct Auto 0.0 /100WBC (0.0-0.2); Platelet Count 264 X10*3/uL (160-400); Red Blood Count 4.18 X10*6/uL (4.20-5.50); White Blood Count 7.5 X10*3/uL (4.8-10.8)
[2025-06-22 14:31] LABS: Alanine Aminotransferase 35 U/L (0-31); Albumin Level 4.4 g/dL (3.5-5.0); Alkaline Phosphatase 55 U/L (39-117); Anion Gap 12 (12-20); Aspartate Amino Transferase 54 U/L (5-31); Blood Urea Nitrogen 14 mg/dL (9-16); Calcium 8.9 mg/dL (8.4-10.2); Carbon Dioxide 25 mmol/L (22-29); Chloride 107 mmol/L (96-108); Cholesterol 193 mg/dL (<200); Estimated Glomerular Filt Rate 57; HDL Cholesterol 45 mg/dL (>40); Potassium 4.1 mmol/L (3.3-5.1); Sodium 140 mmol/L (135-145); Total Protein 7.3 g/dL (6.5-8.0); Triglycerides 268 mg/dL (<150)
[2025-06-22 17:40] LABS: Appearance Urine Clear; Glucose Urine UA Negative (Negative); PH 6.0 (5.0-9.0); Specific Gravity - Urine 1.015 (1.005-1.025); UMIC TRIGGER UA YES
[2025-06-22 17:51] LABS: Microalbum/Creatinine Ratio Ur 11.0 ug/mg cr (<30)
== END 2025-06-22 12:49 | disposition home or self-care (01) ==
LOC: HO.WFDLDS 12:48
PROVIDERS: Visit Provider Family Medicine
DX: Z00.00 Encounter for general adult medical examination without abnormal findings (principal); I10 Essential (primary) hypertension
CPT/HCPCS: 36415; 80053; 80061; 81001; 82043; 82570; 84443; 85025

== ENCOUNTER 2025-06-26 12:54 | Outpatient (AMB) | payer MEDICARE, SELFPAY ==
--- NOTE | 2025-06-26 12:57 | MHC.PC.OV ---
Vital Signs 06/26/25 13:00 Height 5 ft 9 in Weight 152 lb BMI 22.4 BP 128/71 Blood Pressure Location Lt brachial Position Sitting Respiration 12 Pulse 78 Pulse Source Pulse Oximeter Temp 97.0 F Temp Source Temporal Artery Scan Pulse Oximetry (%) 96 Oxygen Delivery Method Room Air Intake Visit Reasons: Annual Physical- see comments Intake Note: Annual physical. 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: No Allergies penicillin V Allergy (Unknown, Verified 06/26/25 12:58) hives Medication List - Last Reconciled 06/26/25 by Aguilar De Luna MD albuterol sulfate 90 mcg/actuation 2 puffs PO Q6H PRN aspirin (Adult Aspirin Regimen) 81 mg PO DAILY bupropion HCl 37.5 mg (1/2 x 75 mg) PO BID 90 days simvastatin 40 mg PO DAILY 90 days Tobacco use date assessed: 06/26/25 Fall risk assessment: No Falls in past year Last assessed Fall Risk: 06/26/25 Dental Screening Dental Screen Date: 06/26/25 Did you have a dental visit in the last 12 months?: Yes Did you have a dental problem in the last 6 months where you did not have access to dental care?: No Was dental information given to patient?: Patient has dentist HPI Annual Physical- see comments HPI Details 69 y/o female presents for an extended exam with f/u labs and health maintenance. Labs drawn 06/22/25. Reviewed labs with pt. Rbc/Hct mildly low. Fasting glucose 165. Elevated liver enzymes - AST 54, ALT 35. Triglycerides 268. TC 193. LDL 95. HDL 45. She is on simvastatin 40mg daily. TSH 1.66. A1c today 5.4%. Pt due for a colonoscopy. HPI Comments History of Present Illness Details Documentation assistance for Aguilar De Luna MD, was provided by Braydon Sneed,? Footwear Machinery Instructor on 06/26/2025 at 1:42 PM EST. I, Dr. De Luna, have read, observed, and verified documentation. [facility] Medical History Hypercholesteremia Rheumatoid arthritis Broken leg Tachycardia Flushing Itch Close exposure to 2019 novel coronavirus Surgical History History of appendectomy History of shoulder surgery Social History Housing: House Alcohol intake: never Patient Tobacco Use Status: Former Tobacco user e-Cigarette/Vaping Use: Never Used Second Hand Smoke Exposure: No service: No Current occupational status: retired Current occupational exposures/hazards: No Cognitive needs: No Hearing needs: No Vision needs: No (Glasses) Questionnaire PHQ-9 Over the last 2 weeks, how often have you been bothered by any of the following problems? 1. Little interest or pleasure in doing things: not at all 2. Feeling down, depressed, or hopeless: not at all 3. Trouble falling or staying asleep, or sleeping too much: not at all 4. Feeling tired or having little energy: not at all 5. Poor appetite or overeating: not at all 6. Feeling bad about yourself - or that you are a failure or have let yourself or your family down: not at all 7. Trouble concentrating on things, such as reading the newspaper or watching television: not at all 8. Moving or speaking so slowly that other people could have noticed. Or the opposite - being so fidgety or restless that you have been moving around a lot more than usual: not at all 9. Thoughts that you would be better off or of hurting yourself in some way: not at all Total score: 0 Depression Screening Interpretation: Negative Depression Screening Done: Yes 36364 - PHQ-9 Billing: Yes Source: Developed by Drs. Kamran Salas, Brooklyn Arias, Darrion Ayon and colleagues, with an educational mariusz from [employer]. Thrive Questionnaire Date Thrive assessed: 06/26/25 I am a: Patient What is your living situation today?: I have a steady place to live Within the past 12 months, did the food you bought not last and you didn't have the money to get more?: Never true Within the past 12 months, did you worry whether your food would run out before you got money to buy more?: Never true Do you have trouble paying for medicines?: No Do you have trouble getting transportation to medical appointments?: No Do you have trouble paying your heating and electricity bill?: No Do you have trouble taking care of your child, family member or friend?: No Do you have trouble with day-to-day activities such as bathing, preparing meals, shopping, managing finances, etc.?: No Are you currently unemployed and looking for a job?: No Are you interested in more education?: No THRIVE Score: 0 ARNOLDO-7 AMB Questionnaire ARNOLDO-7 Date ARNOLDO - 7 assessed: 06/26/25 Feeling nervous, anxious, or on edge: 0 = Not at all Not being able to stop or control worryin = Not at all Worrying too much about different things: 0 = Not at all Trouble relaxin = Not at all Being so restless that it is hard to sit still: 0 = Not at all Becoming easily annoyed or irritable: 0 = Not at all Feeling afraid as if something awful might happen: 0 = Not at all Total ARNOLDO-7 score (0-4 normal; 5-9 mild; 10-14 moderate; 15-21 severe): 0 Source: Developed by Drs. Kamran Salas, Brooklyn Arias, Darrion Ayon and colleagues, with an educational mariusz from [employer]. ARNOLDO-7 Assessment Billing ARNOLDO-7 Assessment Tool: ARNOLDO-7 Assessment 61386 Review of Systems Const Denies chills, Denies fatigue, Denies fever(s), Denies headache(s) and Denies weakness Eyes Denies change in vision ENT Denies dizziness, Denies headache(s), Denies hearing loss, Denies nasal congestion, Denies sinus pain, Denies sinus pressure and Denies sore throat Card Denies chest pain, Denies lightheadedness, Denies dyspnea and Denies other (palpitations) Resp Denies cough, Denies dyspnea and Denies wheezing GI Denies abdominal pain, Denies melena, Denies hematochezia, Denies change in bowel habits, Denies dyspepsia and Denies nausea Denies hematuria and Denies dysuria Musc Denies abnormal gait, Denies myalgias, Denies arthralgias, Denies numbness and Denies tingling Skin/Breast Denies rash, Denies unusual bruising and Denies wounds Neuro Denies abnormal gait, Denies dizziness, Denies headache(s), Denies memory loss, Denies numbness, Denies Sensory deficit (Neuro), Denies tingling and Denies weakness Psych Denies anxiety, Denies depression and Denies memory loss Endo Denies cold intolerance, Denies fatigue, Denies heat intolerance, Denies polydipsia and Denies polyuria [place]/Lymph Denies easy bleeding and Denies easy bruising Aller/Immun Denies wheezing Physical exam (Primary Care) Vital Signs: Last Vital Signs Temp 97.0 F 06/26/25 13:00 Pulse 78 06/26/25 13:00 Resp 12 06/26/25 13:00 BP 128/71 06/26/25 13:00 Pulse Ox 96 06/26/25 13:00 Oxygen Delivery Method Room Air 06/26/25 13:00 BMI result Body Mass Index 22.4 Tobacco/Smoking Status: Tobacco use Status Tobacco use date assessed 06/26/25 06/26/25 13:02 Patient Tobacco Use Status Former Tobacco user 06/26/25 13:02 e-Cigarette/Vaping Use Never Used 06/26/25 13:02 PHQ-9: PHQ-9 Score PHQ-9: Total score 0 06/26/25 13:02 Depression Screening Interpretation: Negative Thrive Assessment: Date of Thrive Assessment Date Thrive assessed 06/26/25 06/26/25 13:02 Const General: no acute distress, well developed, alert and awake Nutritional Appearance: well nourished Orientation/consciousness: patient oriented x3 HENMT Head: Yes normocephalic and Yes atraumatic Ears: hearing grossly normal bilaterally and TM's normal bilaterally General nose exam: Normal external nose present and Normal nares present Mouth: Normal oral and palatal mucosa present and moist mucous membranes Teeth and gingiva: dentition normal Throat: Yes posterior oropharynx normal Eyes General: appearance normal, both eyes and all related structures Pupils: Equal, round and reactive pupils present and Pupil accommodation reflex normal EOM: EOMs intact bilaterally Neck Neck: Yes normal visual inspection, Yes no lymphadenopathy and Yes trachea midline Thyroid: Thyroid normal Carotids: no bruits Lymphatic: no lymphadenopathy noted Chest Chest palpation & inspection: normal inspection of the chest Resp Effort & Inspection: normal respiratory effort Auscultation: clear to auscultation bilaterally Cardio Rate: regular rate Rhythm: regular rhythm Heart sounds: S1 normal heart sound present, S2 normal heart sound present, no gallops, no murmurs and no rubs Bruits: no abdominal aortic bruits and no carotid bruits GI Palpation (GI): No Abdominal aortic bruit present, Soft to palpation, nontender, No hepatosplenomegaly present and No Rebound tenderness present Auscultation: normal bowel sounds General: Yes no CVA tenderness Back/Spine/Pelvis Back: no CVA tenderness Cervical Spine: cervical ROM normal and No Cervical spine tenderness Thoracic/Lumbar Spine: thoraco-lumbar ROM normal, No pain with thoraco-lumbar ROM, No thoracic spinal tenderness and No lumbar spinal tenderness Skin Lesions: no lesions Rashes: no rashes Trauma: no lacerations or abrasions Wounds: no wounds Nails: normal Neuro General: patient oriented x3 Cranial nerves: Yes Equal, round and reactive pupils present Cognition (Neuro): normal cognition Gait exam (Neuro): Normal gait present Motor exam (neuro): 5/5 motor strength present throughout Sensory Exam: No Sensory deficit (Neuro) Deep tendon reflexes (DTR's): Right patellar reflex intensity grade: 2+ and Left patellar reflex intensity grade: 2+ Extrem General: Yes normal to inspection and No edema Psych Appearance: grossly normal Affect: normal affect Attitude: cooperative Thought process: Normal thought process present Results AMB Hemoglobin A1c AMB Hemoglobin A1c 5.4 % Last Edit by Shalini Krueger MA on 06/26/25 13:24 Coding Level of Care Code Est Pt Level 4 (72809) Diagnoses Elevated fasting glucose R73.01 Hyperlipidemia E78.5 Elevated liver enzymes R74.8 Borderline anemia D64.9 Screening for colon cancer Z12.11 Breast cancer screening by mammogram Z12.31 Adult general medical exam Z00.00 Additional Codes ARNOLDO-7 Assessment Billing - ARNOLDO-7 Assessment Tool: ARNOLDO-7 Assessment 66345 ([id number]) PHQ-9 - 41589 - PHQ-9 Billing: Yes ([id number]) Assessment & Plan Assessment & Plan (1) Elevated fasting glucose: Code(s): R73.01 - Impaired fasting glucose Category: Medical Plan: A1c towards upper range of normal Likely some insulin resistance Encouraged a diet lower in sugars and starches Will monitor (2) Hyperlipidemia: Code(s): E78.5 - Hyperlipidemia, unspecified Category: Medical Plan: She is on simvastatin Lipid levels are well controlled except triglycerides which were high due to elevated blood sugars Encouraged a diet lower in sugars and starches Encouraged diet low in saturated fats and cholesterol Continue simvastatin (3) Elevated liver enzymes: Code(s): R74.8 - Abnormal levels of other serum enzymes Category: Medical Plan: Mildly elevated liver enzymes Hydrate well and decreased Tylenol Will recheck and if the same or higher will check an ultrasound of the liver (4) Borderline anemia: Code(s): D64.9 - Anemia, unspecified Category: Medical Plan: Mild and stable Will recheck with next labs (5) Screening for colon cancer: Code(s): Z12.11 - Encounter for screening for malignant neoplasm of colon Category: Medical Plan: Last colonoscopy in 2019 with [facility] and they recommended follow-up in 5 years Referred back to [facility] GI (6) Breast cancer screening by mammogram: Code(s): Z12.31 - Encounter for screening mammogram for malignant neoplasm of breast Category: Medical Plan: Recent mammogram negative for malignancy. Will continue annual screening (7) Adult general medical exam: Code(s): Z00.00 - Encounter for general adult medical examination without abnormal findings Category: Medical Plan: 69-year-old female presents for an extended exam Encouraged healthy diet with active lifestyle and plenty of exercise Orders: Orders AMB Hemoglobin A1c Today Z13.9 - Encounter for screening, unspecified XR DEXA axial skeleton Today M81.0 - Age-related osteoporosis without current pathological fracture Comprehensive [place]. Panel Fast Today R74.8 - Abnormal levels of other serum enzymes, Z00.00 - Encounter for general adult medical examination without abnormal findings Complete Blood Count Auto Diff Today D64.9 - Anemia, unspecified, Z00.00 - Encounter for general adult medical examination without abnormal findings Hemoglobin A1c Today R73.01 - Impaired fasting glucose Referrals Gastroenterology Referral Z12.11 - Encounter for screening for malignant neoplasm of colon Patient Instructions: Mildly elevated liver enzymes Hydrate well We will recheck in a few months. If the same or higher, will check an ultrasound. Mild/borderline anemia. Stable. Will recheck with next blood draw Elevated fasting blood sugar: A1c at upper range of normal Encouraged diet lower in sugars and starches Triglycerides are elevated also and are likely to improve with improvements in sugar intake. Your other lipid levels were fine Continue simvastatin Due for colonoscopy: Will refer back to [facility] gastroenterology Due for bone density test-ordered Difficulty sleeping: Encouraged her to research ?sleep hygiene? Avoid screens at bedtime Encouraged more exercise no known too close to bedtime
[2025-06-26 13:00] VITALS: BP 128/71; PULSE 78; RESP 12; TEMP 36.1; O2SAT 96; BMI 22.4
== END 2025-06-26 13:41 | disposition home or self-care (01) ==
LOC: HO.HMCFM 12:54
PROVIDERS: PCP Family Medicine; Visit Provider Family Medicine
DX: R73.01 Impaired fasting glucose (principal); E78.5 Hyperlipidemia, unspecified; R74.8 Abnormal levels of other serum enzymes; D64.9 Anemia, unspecified; Z12.11 Encounter for screening for malignant neoplasm of colon; Z12.31 Encounter for screening mammogram for malignant neoplasm of breast; Z00.00 Encounter for general adult medical examination without abnormal findings; Z13.9 Encounter for screening, unspecified

== ENCOUNTER → 2025-06-26 12:54 | Outpatient (BNVA) | payer MEDICARE, SELFPAY | PROVIDERS: Visit Provider Family Medicine | DX: Z00.00 Encounter for general adult medical examination without abnormal findings (principal); R73.01 Impaired fasting glucose; E78.5 Hyperlipidemia, unspecified; R74.8 Abnormal levels of other serum enzymes; D64.9 Anemia, unspecified; M81.0 Age-related osteoporosis without current pathological fracture | CPT/HCPCS: 83036; 96127; 99212 ==

== ENCOUNTER 2025-11-03 15:27 | Outpatient (AMB) | payer MEDICARE, SELFPAY ==
--- NOTE | 2025-11-03 15:37 | A.OFFPC_ITS ---
Vital Signs 11/03/25 15:43 Height 5 ft 9 in Weight 151 lb 8 oz BMI 22.4 BP 114/72 Blood Pressure Location Rt brachial Position Sitting Respiration 13 Pulse 67 Pulse Source Pulse Oximeter Temp 97.7 F Temp Source Temporal Artery Scan Pulse Oximetry (%) 99 Oxygen Delivery Method Room Air Intake Visit Reasons: f/u liver enzymes, fasting glucose Intake Note: Cari presents in the office today for her liver enzymes and fasting glucose. Environmental Quality Analyst Required: No Is last menstrual period known: No Post menopausal: Yes Patient : No Allergies penicillin V Allergy (Unknown, Verified 11/03/25 15:42) hives Medication List - Last Reconciled 11/03/25 by Aguilar De Luna MD albuterol sulfate 90 mcg/actuation 2 puffs PO Q6H PRN aspirin (Adult Aspirin Regimen) 81 mg PO DAILY bupropion HCl 37.5 mg (1/2 x 75 mg) PO BID 90 days simvastatin 40 mg PO DAILY 90 days Tobacco use date assessed: 11/03/25 Dental Screening Dental Screen Date: 11/03/25 Did you have a dental visit in the last 12 months?: Yes Did you have a dental problem in the last 6 months where you did not have access to dental care?: No Was dental information given to patient?: Patient has dentist HPI f/u liver enzymes, fasting glucose HPI Details 69 y/o female presents to f/u liver enzy mes, fasting glucose. A1c today 11/03/25 5.2%. She has a bone density test scheduled November. HPI Comments History of Present Illness Details Documentation assistance for Aguilar De Luna MD, was provided by Braydon Sneed, Deck Engine Operator on 11/03/2025 at 4:11 PM EST. I, Dr. De Luna, have read, observed, and verified documentation. [facility] Medical History Hypercholesteremia Rheumatoid arthritis Broken leg Tachycardia Flushing Itch Close exposure to 2019 novel coronavirus Surgical History History of appendectomy History of shoulder surgery Social History (Updated 11/03/25 @ 15:43 by Sydnie Kidd CMA) Housing: House Alcohol intake: never Patient Tobacco Use Status: Former Tobacco user e-Cigarette/Vaping Use: Never Used Second Hand Smoke Exposure: No Use of substances other than those prescribed or required for medical reasons: No Patient : No service: No Current occupational status: retired Current occupational exposures/hazards: No Cognitive needs: No Hearing needs: No Vision needs: No (Glasses) Questionnaire PHQ-9 Over the last 2 weeks, how often have you been bothered by any of the following problems? 1. Little interest or pleasure in doing things: not at all 2. Feeling down, depressed, or hopeless: not at all 3. Trouble falling or staying asleep, or sleeping too much: nearly every day 4. Feeling tired or having little energy: nearly every day 5. Poor appetite or overeating: nearly every day 6. Feeling bad about yourself - or that you are a failure or have let yourself or your family down: not at all 7. Trouble concentrating on things, such as reading the newspaper or watching television: not at all 8. Moving or speaking so slowly that other people could have noticed. Or the opposite - being so fidgety or restless that you have been moving around a lot more than usual: not at all Source: Developed by Drs. Kamran Salas, Darrion Smith and colleagues, with an educational mariusz from [employer]. Thrive Questionnaire Date Thrive assessed: 06/26/25 ARNOLDO-7 AMB Questionnaire ARNOLDO-7 Date ARNOLDO - 7 assessed: 06/26/25 Source: Developed by Drs. Kamran Salas, Darroin Smith and colleagues, with an educational mariusz from [employer]. Review of Systems Const Denies chills, Denies fatigue, Denies fever(s), Denies headache(s) and Denies weakness ENT Denies dizziness and Denies headache(s) Card Denies dyspnea Resp Denies cough, Denies dyspnea, Denies wheezing and Denies other (shortness of breath) Musc Denies numbness and Denies tingling Neuro Denies dizziness, Denies headache(s), Denies numbness, Denies tingling and Denies weakness Psych Denies anxiety and Denies depression Endo Denies fatigue Aller/Immun Denies wheezing Physical exam (Primary Care) Vital Signs: Last Vital Signs Temp 97.7 F 11/03/25 15:43 Pulse 67 11/03/25 15:43 Resp 13 11/03/25 15:43 BP 114/72 11/03/25 15:43 Pulse Ox 99 11/03/25 15:43 Oxygen Delivery Method Room Air 11/03/25 15:43 BMI result Body Mass Index 22.4 Tobacco/Smoking Status: Tobacco use Status Tobacco use date assessed 11/03/25 11/03/25 15:46 Patient Tobacco Use Status Former Tobacco user 11/03/25 15:43 e-Cigarette/Vaping Use Never Used 11/03/25 15:43 Thrive Assessment: Date of Thrive Assessment Date Thrive assessed 06/26/25 11/03/25 15:39 Const General: well developed; No acute distress Nutritional Appearance: well nourished Orientation/consciousness: patient oriented x3 HENMT Head: Yes normocephalic and Yes atraumatic Eyes General: appearance normal, both eyes and all related structures Pupils: Equal, round and reactive pupils present EOM: EOMs intact bilaterally Resp Effort & Inspection: normal respiratory effort Auscultation: clear to auscultation bilaterally Cardio Rate: regular rate Rhythm: regular rhythm Heart sounds: S1 normal heart sound present, S2 normal heart sound present, no gallops, no murmurs and no rubs Neuro General: patient oriented x3 and gait normal Cranial nerves: Yes Equal, round and reactive pupils present Psych Affect: normal affect Results AMB Hemoglobin A1c AMB Hemoglobin A1c 5.2 % Last Edit by Sydnie Kidd CMA on 11/03/25 15:49 AMB Hemoglobin A1c previously reported as 5.1 Sydnie Kidd 11/03/25 15:49 Results Reviewed Results Reviewed: Laboratory Last Values Hgb A1c (Clinic) 5.2 % (4.0-6.0) 11/03/25 15:46 Coding Level of Care Code Est Pt Level 3 (36066) Diagnoses Elevated fasting glucose R73.01 Osteoporosis M81.0 Elevated liver enzymes R74.8 Screening for colon cancer Z12.11 Assessment & Plan Assessment & Plan (1) Elevated fasting glucose: Code(s): R73.01 - Impaired fasting glucose Category: Medical Plan: A1c was 5.4% at prior check and and now 5.2%. Normal range Has had some elevated fasting blood sugars Encouraged a diet low in sugars and starches (2) Osteoporosis: Code(s): M81.0 - Age-related osteoporosis without current pathological fracture Category: Medical Plan: She has a bone density test scheduled for November We can follow-up on the results at her next appointment (3) Elevated liver enzymes: Code(s): R74.8 - Abnormal levels of other serum enzymes Category: Medical Plan: Labs were ordered at her last visit. She will get these done prior to next visit and we can review (4) Screening for colon cancer: Code(s): Z12.11 - Encounter for screening for malignant neoplasm of colon Category: Medical Plan: Report from [facility] shows last colonoscopy in 2021 and recommended 5 year follow-up; 2026 Orders: Orders AMB Hemoglobin A1c Today R73.01 - Impaired fasting glucose
[2025-11-03 15:43] VITALS: BP 114/72; PULSE 67; RESP 13; TEMP 36.5; O2SAT 99; BMI 22.4
== END 2025-11-03 16:36 | disposition home or self-care (01) ==
LOC: HO.HMCFM 15:28
PROVIDERS: PCP Family Medicine; Visit Provider Family Medicine
DX: R73.01 Impaired fasting glucose (principal); M81.0 Age-related osteoporosis without current pathological fracture; R74.8 Abnormal levels of other serum enzymes; Z12.11 Encounter for screening for malignant neoplasm of colon

== ENCOUNTER → 2025-11-03 15:27 | Outpatient (BNVA) | payer MEDICARE, SELFPAY | PROVIDERS: PCP Family Medicine; Visit Provider Family Medicine | DX: M81.0 Age-related osteoporosis without current pathological fracture (principal); R74.8 Abnormal levels of other serum enzymes; D64.9 Anemia, unspecified; R73.01 Impaired fasting glucose | CPT/HCPCS: 83036; 99212 ==

== ENCOUNTER 2025-11-18 09:57 | Outpatient (REF) | payer MEDICARE, SELFPAY ==
[2025-11-18 14:20] LABS: MANUAL DIFF FLAG NO
[2025-11-18 14:27] LABS: Hematocrit 40.4 % (37.0-47.0); Hemoglobin 13.1 g/dl (12.0-16.0); Imm Gran Abs Auto 0.02 X10*3/uL (0.00-0.03); Imm Gran Pct Auto 0.3 % (0.0-0.4); Lymphocytes Absolute Auto 2.9 X10*3/uL (1.2-4.9); Mean Corpuscular HGB Conc 32.4 g/dl (31.0-35.0); Mean Corpuscular Hemoglobin 28.9 pg (27.0-33.0); Mean Corpuscular Volume 89.0 fL (80.0-98.0); NRBC Abs Auto 0.000 X10*3/uL (0.0-0.012); NRBC Pct Auto 0.0 /100WBC (0.0-0.2); Platelet Count 293 X10*3/uL (160-400); Red Blood Count 4.54 X10*6/uL (4.20-5.50); White Blood Count 7.4 X10*3/uL (4.8-10.8)
[2025-11-18 14:37] LABS: Alanine Aminotransferase 23 U/L (0-31); Albumin Level 4.6 g/dL (3.5-5.0); Alkaline Phosphatase 44 U/L (39-117); Anion Gap 12 (12-20); Aspartate Amino Transferase 26 U/L (5-31); Blood Urea Nitrogen 20 mg/dL (9-16); Calcium 9.6 mg/dL (8.4-10.2); Carbon Dioxide 28 mmol/L (22-29); Chloride 106 mmol/L (96-108); Estimated Glomerular Filt Rate 48; Potassium 4.1 mmol/L (3.3-5.1); Sodium 142 mmol/L (135-145); Total Protein 7.7 g/dL (6.5-8.0)
[2025-11-18 15:54] LABS: Appearance Urine Clear; Glucose Urine UA Negative (Negative); PH 7.0 (5.0-9.0)
[2025-11-18 15:55] LABS: Specific Gravity - Urine 1.010 (1.005-1.025); UMIC TRIGGER UA YES
== END 2025-11-18 09:58 | disposition home or self-care (01) ==
LOC: HO.HKASLDS 09:57
PROVIDERS: PCP Family Medicine; Visit Provider Family Medicine
DX: Z00.00 Encounter for general adult medical examination without abnormal findings (principal); D64.9 Anemia, unspecified; R74.8 Abnormal levels of other serum enzymes; R73.01 Impaired fasting glucose
CPT/HCPCS: 36415; 80053; 81001; 81003; 83036; 85025